=== PATIENT | female | born 1970 | race Caucasian/White ===

== ENCOUNTER → 2017-11-03 | Outpatient (CLI) | payer OTHER ==
--- NOTE | 2017-11-09 13:53 | MM ---
Reason for exam: screening (asymptomatic). Last mammogram was performed 2 years and 3 months ago. History: Patient is postmenopausal. Physical Findings: A clinical breast exam by your physician is recommended on an annual basis and results should be correlated with mammographic findings. MG Screening Mammo w CAD Bilateral CC and MLO view(s) were taken. Prior study comparison: August 14, 2015, bilateral MG 3d screening mammo w/cad. The breast tissue is extremely dense which could obscure a lesion on mammography. No significant changes when compared with prior studies. ASSESSMENT: Benign, BI-RAD 2 RECOMMENDATION: Routine screening mammogram of both breasts in 1 year.
== END | disposition home or self-care (01) ==
LOC: RADMAMWWP 15:15
PROVIDERS: ATTEND Obstetrics & Gynecology
DX: Z12.31 Encounter for screening mammogram for malignant neoplasm of breast (principal)
CPT/HCPCS: 77067

== ENCOUNTER 2018-08-22 14:46 | Emergency (ER) | payer OTHER ==
[2018-08-22 14:53] VITALS: BP 148/112; PULSE 89; RESP 16; TEMP 98.8
[2018-08-22] MEDS ORDERED: DIPH,PERTUS(ACELL)TETVAC-LF 0.5 ML VIAL IM ONE (15:13)
--- NOTE | 2018-08-22 15:37 | ED ---
General Adult HPI - General Chief complaint: Needlestick/Exposure Stated complaint: Needle stick-[facility] Time Seen by Provider: 08/22/18 14:55 Source: patient Mode of arrival: ambulatory Limitations: no limitations - History of Present Illness Initial comments: Patient is a 47-year-old female presents to the emergency Department with lancet postexposure. 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 Patient denies bleeding from the site of injury. Patient denies blood on the lancets prior to injury. Patient reports all of her vaccinations are up-to-date. Patient is unaware of the source the lancets were used. Patient denies fever, nausea, vomiting. Patient denies edema, erythema or any skin discoloration at the site of injury. Patient is concerned because her tetanus status is not up-to-date. Review of Systems ROS Statement: Those systems with pertinent positive or pertinent negative responses have been documented in the HPI. ROS Other: All systems not noted in ROS Statement are negative. Past Medical History Past Medical History: No Reported History Past Surgical History: No Surgical Hx Reported General Exam - General Exam Comments Initial Comments: General: Well-developed well-nourished distress HEENT: Normocephalic/atraumatic, PERLL, pharynx erythema, swallowing well, EAC no erythema, no exudates, TM clear, no cervical lymph nodes Neck: Supple, nontender, trachea midline Chest/Lungs: Normal respirations, no signs of respiratory distress clear to auscultation bilaterally no wheezes, rales, rhonchi Cardiac: Regular rate and rhythm, normal S1-S2, no murmurs rubs or gallops Abdomen/GI: Soft nontender, bowel sounds equal or quadrant x4, no guarding, no rebound no CVA tenderness Musculoskeletal: Nontender, full range of motion, no edema, strength equal bilaterally Skin: Warmth, no rashes or lesions, no cyanosis or diaphoresis, nonvisible puncture sites from a lancet on distal bilateral second digits. Neurologic: AAO x 3, CN 2-12 intact, Psychiatric: Mood and affect normal, judgment normal Limitations: no limitations Course Vital Signs 08/22/18 14:50 Temperature 98.8 F Pulse Rate 89 Respiratory 16 Rate Blood Pressure 148/112 O2 Sat by Pulse 99 Oximetry Medical Decision Making - Medical Decision Making Patient is a 47-year-old female presents emergency Department postexposure to her lancet. Patient was administered tetanus prophylaxis. There is a low probability for blood exposure using a non-hollow needle such as lancet. Patient advised to follow-up with primary care regarding concerns for further testing. Patient is unaware of the source thus making it difficult to track for possible exposure to any blood-borne pathogens. Strict return parameters were thoroughly discussed with patient who is understanding and agreeable. Case discussed with physician. Disposition Clinical Impression: Exposure to needle Disposition: HOME SELF-CARE Condition: Stable Additional Instructions: Please follow-up with primary care. Please return to emergency department if symptoms worsen. Is patient prescribed a controlled substance at d/c from ED?: No Referrals: Jacqueline Crooks III, MD [Primary Care Provider] - 1-2 days Time of Disposition: 15:37
== END 2018-08-22 15:43 | disposition home or self-care (01) ==
LOC: EC 14:46
DX: S69.91XA Unspecified injury of right wrist, hand and finger(s), initial encounter (principal); S69.92XA Unspecified injury of left wrist, hand and finger(s), initial encounter; W46.1XXA Contact with contaminated hypodermic needle, initial encounter; Z23 Encounter for immunization; Y92.69 Other specified industrial and construction area as the place of occurrence of the external cause; Y93.89 Activity, other specified; Y99.0 Civilian activity done for income or pay
CPT/HCPCS: 90471; 90715; 99282

== ENCOUNTER → 2019-12-31 | Outpatient (CLI) | payer OTHER | END | disposition home or self-care (01) | LOC: LABWHC1 09:59 | PROVIDERS: ATTEND Nurse Practitioner Family | DX: Z20.828 Contact with and (suspected) exposure to other viral communicable diseases (principal) | CPT/HCPCS: 87081; 87430; 87502; U0003; C9803 ==

== ENCOUNTER → 2020-06-17 | Outpatient (CLI) | payer OTHER ==
--- NOTE | 2020-06-18 13:08 | MM ---
Reason for exam: screening (asymptomatic). Last mammogram was performed 2 years and 7 months ago. History: Patient is postmenopausal. Physical Findings: A clinical breast exam by your physician is recommended on an annual basis and results should be correlated with mammographic findings. MG Screening Mammo w CAD Bilateral CC and MLO view(s) were taken. Prior study comparison: November 03, 2017, bilateral MG screening mammo w CAD. August 14, 2015, bilateral MG 3d screening mammo w/cad. The breast tissue is heterogeneously dense. This may lower the sensitivity of mammography. There is no discrete abnormality. ASSESSMENT: Negative, BI-RAD 1 RECOMMENDATION: Routine screening mammogram of both breasts in 1 year.
== END | disposition home or self-care (01) ==
LOC: RADMAMWWP 15:31
PROVIDERS: ATTEND Obstetrics & Gynecology
DX: Z12.31 Encounter for screening mammogram for malignant neoplasm of breast (principal); Z78.0 Asymptomatic menopausal state
CPT/HCPCS: 77067

== ENCOUNTER → 2022-01-14 | Outpatient (CLI) | payer OTHER | END | disposition home or self-care (01) | LOC: LABWHC1 13:42 | PROVIDERS: ATTEND Emergency Medicine | DX: Z53.9 Procedure and treatment not carried out, unspecified reason (principal) ==

== ENCOUNTER → 2022-02-22 | Outpatient (CLI) | payer OTHER ==
--- NOTE | 2022-02-22 15:18 | MR ---
EXAMINATION TYPE: MR lumbar spine wo con DATE OF EXAM: 02/22/2022 COMPARISON: NONE HISTORY: Lower back pain, radiates down left leg. TECHNIQUE: Multiplanar, multisequence imaging of the lumbar spine is performed without IV contrast. FINDINGS: Sagittal images of the lumbar spine show vertebral body heights to appear satisfactory. Sli ght grade 1 retrolisthesis L4 on L5. Multilevel disc desiccation is seen. Mild disc space narrowing L 4-L5 level. The conus medullaris is normal in position and signal ending inferior T12 level. 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 Heterogeneous Modic type II endplate changes anterior superior L3 and L4 vertebra with mild multilevel anterior spurring in the lumbar spine is noted. Axial images show some artifact degradation. Axial images both within normal limits T12-L1 through th e L3-L4 levels. Axial images at L4-L5 level show mild broad disc bulge with focal far left paracentral disc protrusio n component. Mild facet arthropathy bilaterally. There is effacement of the anterior thecal sac and l ateral recess. There is effacement of the central left L5 nerve sagittal image 7 and axial image 8. L eft-sided neural foramina is patent. Right-sided neural foramen is patent. Axial images at L5-S1 level show mild to moderate facet arthropathy. Spinal canal is preserved. Bilat eral neural foramina are patent. L5 vertebra is suspected sacralized bilaterally. IMPRESSION: Focal degenerative change at what I label L4-L5 level likely accounting for patient's lef t-sided radiculopathy type symptoms.
== END | disposition home or self-care (01) ==
LOC: RADMRIMAIN 12:28
PROVIDERS: ATTEND Nurse Practitioner Family
DX: M47.26 Other spondylosis with radiculopathy, lumbar region (principal)
CPT/HCPCS: 72148

== ENCOUNTER → 2022-03-09 | Outpatient (CLI) | payer OTHER | END | disposition home or self-care (01) | LOC: LABWHC1 08:42 | PROVIDERS: ATTEND Orthopaedic Surgery | DX: Z01.812 Encounter for preprocedural laboratory examination (principal); M51.26 Other intervertebral disc displacement, lumbar region; Z22.322 Carrier or suspected carrier of Methicillin resistant Staphylococcus aureus | CPT/HCPCS: 87070 ==

== ENCOUNTER → 2022-03-10 | Outpatient (CLI) | payer OTHER ==
[2022-03-10 19:23] LABS: Basophils # (A) 0.04 X 10*3/uL (0.00-0.10); Basophils % (A) 0.7 %; Eosinophils # (A) 0.26 X 10*3/uL (0.04-0.35); Eosinophils % (A) 4.5 %; HCT 42.5 % (37.2-46.3); HGB 13.6 g/dL (12.0-15.0); Immature Grans, Automated 0.2 %; Lymphocytes # (A) 1.29 X 10*3/uL (0.90-5.00); Lymphocytes % (A) 22.5 %; MCH 32.2 pg (27.0-32.0); MCV 100.5 fL (80.0-97.0); Mean Platelet Volume 11.7 fL (9.5-12.2); Monocytes # (A) 0.47 X 10*3/uL (0.20-1.00); Monocytes % (A) 8.2 %; NRBC Per 100 WBC 0 /100 WBCS (0.0-0.0); Neutrophils # (A) 3.66 X 10*3/uL (1.80-7.70); Neutrophils % (A) 63.9 %; Platelet Count 272 X 10*3/uL (140-440); RBC 4.23 X 10*6/uL (4.10-5.20); RDW 13.1 % (11.5-14.5); WBC 5.73 X 10*3/uL (4.50-10.00)
[2022-03-10 20:02] LABS: African American GFR (CKD) 107.4 (60.0-200.0); Anion Gap 15.2 mmol/L (10.00-18.00); BUN/Creat Ratio 28.67 Ratio (12.00-20.00); Blood Urea Nitrogen 21.3 mg/dL (9.0-27.0); Calcium 9.8 mg/dL (8.7-10.3); Carbon Dioxide 17.6 mmol/L (20.0-27.5); Non-African American GFR(CKD) 92.7 (60.0-200.0)
[2022-03-10 20:37] LABS: INR 0.88 (0.90-1.11)
== END | disposition home or self-care (01) ==
LOC: LABPAT 11:48
PROVIDERS: ATTEND Orthopaedic Surgery
DX: Z01.812 Encounter for preprocedural laboratory examination (principal); M51.26 Other intervertebral disc displacement, lumbar region
CPT/HCPCS: 80048; 85025; 85610

== ENCOUNTER 2022-03-15 05:53 | Day surgery (SDC) | payer OTHER ==
[2022-03-09 12:58] VITALS: BMI 30.7
[~2022-03-15 05:53] MED LIST: ACETAMINOPHEN TAB 500 MG TAB PO PRN; GABAPENTIN 300 MG CAP PO PRN; ONDANSETRON 4 MG/2 ML VIAL IVP PRN; TRANEXAMIC ACID IN NACL,ISO-OS 1,000 MG in SALINE 1 100ML.BAG IVPB PRN
[2022-03-15] MEDS ORDERED: ONDANSETRON 4 MG/2 ML VIAL IVP ONE (06:12)
[2022-03-15] MEDS ORDERED: DEXAMETHASONE SOD PHOSPHATE 4 MG/ML 1 ML VIAL IV ONE (06:12)
[2022-03-15] MEDS ORDERED: LIDOCAINE 1% (10MG/ML) FOR IV START INTRADERMA PRN (06:12)
--- NOTE | 2022-03-15 06:48 | P.HPOR ---
History of Present Illness H&P Date: 03/09/22 .D:Date: 03/09/22 : 10:33am .T:Title: [facility] Date of :[birth year] Age: 51 year Height: 5'5" Weight: 176 lbs BMI: 29.29 kg/m2 Occupation: Principal bakery assistant VAS: 6 CHIEF COMPLAINT: Low back pain DOI: 09/2021 DOS:n/a Duration of current treatment regiment: 3 months HISTORY: Xrays No new xrays taken in office Trauma or injury No Work-Related No Pain description aching, burning. Location posterior Patient notes that their pain radiates to left lower extremity Activity Modification No Hand Dominance right TREATMENTS COMPLETED: 6 weeks of PT completed? Month and Year of last PT date? Yes How many sessions? 12 Did it help? No Physician directed home exercise completed? yes Patient has trialed the physician directed home exercise program without relief of their symptoms. Medications yes List: Motrin, Toradol, flexeril, and steroids Alternative interventions Chiropractic: yes Massage therapy: yes R.I.C.E: yes Brace: No Injections No RFA: No SUBJECTIVE: Ms. Perrin returns too the office today for a recheck of her low back pain and MRI results. patient continues to report a dull ache burning lumbar pain that radiates into the left lower extremity, associated with numbness and tingling. Acupuncture 2 times a week and utilizing an inversion table, with mild relief. Patient states that sitting exacerbates her symptoms. Patient is currently standing throughout office visit and exam. She is very tearful and expressing that she has seen a progression in her symptoms since the onset. MRI results are reviewed and discussed. Patient and spouse verbalized understanding. Treatment options have been presented, which include surgical intervention. Ms. Perrin and her spouse have agreed to proceed forward with a Left L4-L5 Microdisce ctomy. Otherwise the patient denies any f/c/sob/cp, no bladder or bowel retention/incontinence, no perineal numbness/tingling, and ambulates independently. HPI: Ms. Perrin was last seen on 02/01/22 regarding an evaluation of their low back pain. Patient reports a dull ache burning lumbar pain ongoing since 09/2021 with no known injury or trauma to indicate an exact onset of their symptoms. In addition to their lumbar pain, they do report that it radiates into the left lower extremity, associated without numbness and tingling. Overall the patient has seen a progressive increase in symptoms since their onset. Ms. Perrin symptoms are exacerbated with sitting, standing, and ambulation, due to this they notes that it is increasingly difficult for Ms. Perrin to complete many of their daily tasks. Patient is having moderate sleep disturbances as well due to their ongoing pain and associated symptoms. Regarding treatments, the patient has previously trialed the above listed modalities, also to include yoga, acupuncture, and stretching. Patient denies trialing any other modalities at this time. For their symptoms, the patient has been taking Toradol and Flexeril with no relief. Patient did trial a Medrol Dosepak with relief. Patient did see her PCP for sciatica. Otherwise the patient denies any f/c/sob/cp, no bladder or bowel retention/incontinence, no perineal numbness/tingling, and ambulates independently. The patients' past social, medical, family, surgical history, as well as review of systems, have been reviewed. Please refer to the Neurosurgery History and Physical form that has been scanned in to our electronic medical record system. 14 points review of systems completed and as stated in HPI, all other systems reviewed are negative. Social History: Reviewed, see appropriate section of the chart for details. P3 Family History: Reviewed, see appropriate section of the chart for details. P2 Past Medical History: Reviewed, see appropriate section of the chart for details. [id number] Medications: Rx: Flexeril Ref: 0 Rx: gabapentin 300 mg capsule Ref: 0 Rx: hormone cream , Ref: 0 Rx: ibuprofen 800 mg tablet Ref: 0 PHYSICAL EXAMINATION: General: Awake, alert, appropriate for age, in no acute distress. HEENT: No unusual neck masses around region of lateral neck triangle, thyroid, supraclavicular groove Heart: Regular rate and rhythm, normal S1, S2 and no murmur/gallop. Lungs: Clear to auscultation bilaterally with no use of accessory muscles. Extremities: Skin warm and dry without acute lesions, coloration, temperature, skin intact, no tenderness or erythema Integument: Hairy patches: ABSENT Dorsal skin dimples: ABSENT Cafe au lait spots: ABSENT Surgical incisions: n/a Palpation: Please see Pain drawing on Intake sheet for further detail. Midline spinal tenderness: No E6 Cervical Tenderness: No E6 Paralumbar tenderness: No E6 Parathoracic tenderness: No E6 Buttocks tenderness: No E6 Sacroilliac Tenderness: yes Laterality: left POSTURAL and MUSCULO-SKELETAL EVALUATION: Coronal Balance: NEUTRAL Recumbent testing: Patient is notable to lay flat on back Sagittal Balance: NEUTRAL Shoulder Profile: LEVEL Pelvic Girdle: LEVEL Neck ROM: UNRESTRICTED Lumbar ROM: RESTRICTED Shoulder ROM: Symmetrical Hip ROM: Symmetrical Knee ROM: Symmetrical Hands: Normal appearance, symmetrical Feet: Normal appearance, Symmetrical VASCULAR STATUS : LEFT RIGHT Wrist Pulses INTACT INTACT Pedal Pulses (Dors. pedis & post.tibialis) INTACT INTACT Color NORMAL NORMAL Edema Absent Absent NEUROLOGIC EXAMINATION: Mental Status:Awake and alert, fully oriented, with normal attention, concentration and memory, and fluent, appropriate speech. Cranial Nerves: I: Olfactory not tested. II: Visual acuity normal, no visual field deficit noted with confrontation. III,IV: Normal pupillary reflexes & intact extraocular movements without nystagmus. V,: Intact symmetrical facial sensation. VII: Intact symmetrical facial motor movement VIII: Hearing intact. IX,X: Intact gag, swallow, & normal voice. XI: Sternocleidomastoid, trapezius function intact. XII: Tongue midline with normal movements. L'hermitte's Sign: Negative / absent Spurling'Sign: Absent bilaterally. Cubital percussion test: Absent bilaterally. Barahona-Tinel sign - Carpal region: Absent bilaterally. Straight Leg Raising: Absent right, positive left. Crossed straight leg raise: Absent O8 MOTOR EXAM (0-5/5, N/T Muscle appearance: Symmetrical, without signs of atrophy or dystrophy UPPER EXTREMITY RIGHT LEFT Shoulder Abduction 5/5 5/5 Biceps 5/5 5/5 Triceps 5/5 5/5 Wrist Extension 5/5 5/5 Hand Intrnsics 5/5 5/5 Flight Engineer Inspector 5/5 5/5 Hand and finger dexterity intact bilaterally? yes Disdiadochokinesis examination negative bilaterally? yes LOWER EXTREMITY RIGHT LEFT Hip Flexion 5/5 5/5 Knee Extension 5/5 5/5 Knee Flexion 5/5 5/5 Dorsiflexion 5/5 4+/5 Plantarflexion 5/5 4/5 EHL 5/5 4/5 FHL 5/5 5/5 Toe heel walk / heel-toe walk intact while maintaining satisfactory balance? yes Squatting/straightening w/o assistance to a min of 60 degree knee flexion? No Single leg stance: intact Trendelenburg sign negative bilaterally REFLEXES(0-4/2, NT)Upper ExtremityLower Extremity Right 2 2 Left 2 2 Pathological Reflexes RIGHT LEFT Barahona's Absent Absent Clonus Absent Absent Babinski Absent Absent Sensory system (0-4, N/T) Test type RU FREEMAN RL LL Joint-Position 2 2 2 2 Vibration 2 2 2 2 Pain & LT sense 2 2 2 2 Dermatomal Deficit: None None None L4-L5 Gait and Functional Evaluation: Ambulatory aids: Independent Romberg's test: Intact bilaterally Steady Gait RADIOGRAPHIC STUDIES: XRAY lumbar spine and pelvis [facility]: overall alignment is fairly well maintained. No acute fractures or dislocations noted. Mild spondylosis from L4 to S1 noted with facet arthrosis. End plate sclerosis noted. No lesions. AP pelvis demonstrates ground-level pelvis no fracture MRI [facility]completed at [facility] 02/22/22 of [facility] rSpine: images reviewed at L4-L5 there is a large left paracentral disc herniation causing displacement of the L5 nerve root as well as S1 nerve roots as it passes. This causes central and foraminal stenosis related central stenosis is moderate foraminal stenosis is severe. On the left-hand side. No other acute fractures or dislocations. There is disc degeneration at this level with disc collapse. Some facet arthrosis is noted. No acute fracture or dislocation noted IMPRESSION: It was my pleasure to have seen and examined Aliyah. I reviewed the patient's clinical syndrome, physical findings, and imaging studies during the appointment today. It is my impression that the patient has a diagnosis of. 1. L4-L5 left paracentral herniated disc with moderate to severe stenosis 2. L4 5 spondylosis 3. Left lower extremity radiculopathy 4. Left lower extremity weakness I outlined the natural course history without intervention and various interventional options. PLAN: -Based on my findings I suggest the following course of action: -Advised patient to continue with supplements, health maintenance, and home exercise programs. Patient expressed understanding and will continue with these modalities. - I discussed treatment options with the patient, including operative and non-operative options, and they have elected to proceed with the following surgical procedure: Left L4-L5 Microdiscectomy The indications, risks, benefits, and alternatives to surgery were discussed with the patient and family at length. Specifically (but not limited to) the risks of infection, stiffness, recurrence of symptoms, need for revision surgery, local numbness, neurovascular injury, and blood clots were discussed. The patient's questions were answered. The decision to proceed was made. Consent will be obtained for the procedure. -Ambulate daily -Take medications as directed -Ice and rest for pain and swelling control. - Prescription for [place] 5/325mg #18 sent to pharmacy Spine Surgery Risk Review Ms. Perrin is presenting for evaluation of low back pain. It was my pleasure to have seen and examined Ms. Perrin. In our visit today we have had a chance to go over subjective complaints, physical examination findings and treatments including the natural course history without intervention and various interventional options. The patients imaging demonstrates: XRAY lumbar spine and pelvis multiview, [facility]: overall alignment is fairly well maintained. No acute fractures or dislocations noted. Mild spondylosis from L4 to S1 noted with facet arthrosis. End plate sclerosis noted. No lesions. AP pelvis demonstrates ground-level pelvis no fracture MRI scancompleted at [facility] from 02/22/22 of LumbarSpine: images reviewed at L4-L5 there is a large left paracentral disc herniation causing displacement of the L5 nerve root as well as S1 nerve roots as it passes. This causes central and foraminal stenosis related central stenosis is moderate foraminal stenosis is severe. On the left-hand side. No other acute fractures or dislocations. There is disc degeneration at this level with disc collapse. Some facet arthrosis is noted. No acute fracture or dislocation noted On physical exam, Ms. Perrin demonstrates Left S1 joint tenderness, decreased lumbar range of motion due to pain with flexion, extension and twisting. Left lower extremity weakness and pain impacting functional testing and gait stability. Patient also has left L4-5 Dermatomal Deficits. Patient ambulates independently. I have explained to the patient that as their condition progresses it will cause further neurological deficits and eventual paralysis. Based on the patients imaging, physical exam, and the rapid progression and disabling nature of their symptoms, at this time I recommend surgery in the form or a: Left L4-L5 Microdiscectomy . I discussed the risk and benefits of this procedure at length with Ms. Aydin. The patient agreed to the considered pursuing the procedure abovementioned. Prior to surgery, she should follow up with her PCP (Cardio, ID, IM etc) for clearance. Questions were invited and answered, and the patient wishes to proceed as outlined below. Currently, I am recommendin.Left L4-L5 Microdiscectomy 2.Follow up with PCP for surgical clearance 3.Review of surgical risks and benefits as well as an educational packet on the proposed surgical procedure. Risks: All surgical procedures come with inherent risks, including those related to positioning, anesthesia, intraoperative findings, and postoperative complications. It is important to understand that surgery does not come with any guarantee of a successful outcome as complications and adverse events are always possible. The patient was given a handout in office today discussing the surgical procedure and risks associated with the intervention, both of which were discussed with the patient. These risks include but are not limited to the following: * Experiencing same, different or even worse symptoms in back, neck, arms, or legs compared to before surgery. Requiring further surgery or other forms of treatment presently or at some time in the future at same or other levels of the intended spine surgery. On an extreme but fortunately relatively rare basis severe complication such as blindness, stroke, heart attack, temporary and/or permanent nerve injury, paralysis, coma, or may occur, sometimes without known explanation. Surgical complications may include but are not limited to risk of infection, fluid accumulation in the surgical dissection site, including a seroma or hematoma, that requires additional surgery, wound drainage, bleeding, new numbness or weakness, vision changes/loss, spinal fluid leakage, non-healing and/or infected incision, headaches, difficulty or inability to swallow, hoarseness, hemopneumothorax, pneumothorax, impotence, retrograde ejaculation, vaginal dryness; injury to nerves, spinal cord, blood vessels, lymphatics or other vital organs (i.e., bowel injury, injury to the great vessels); heterotopic bone formation; complications related to the hardware such as screws, rods, cages including misplaced hardware, device failure, instrumentation at the wrong spine level, hardware fracture/breakage, or hardware loosening; vertebral failure of the spinal column above or below the newly placed hardware; retained surgical instrumentations or devices and the need for further surgery. * Medical risks of the planned spine surgery include but are not limited to generalized Infections to the whole body or local areas outside of the surgical site (sepsis), heart attack, bleeding, anaphylaxis, meningitis, seizure, epilepsy, hearing loss, burn durán, laceration of the head or other areas of the body, bruising, hypersensitivity of the skin, bladder over distension; allergic reaction; shoulder injury related to positioning; fat, blood and air clots to other areas of the body like heart, lungs, brain; fa ilure of internal organs such as lungs, kidneys, liver and excessive bleeding. If blood transfusions are necessary, note that transfusions may cause intolerance reactions such as anaphylaxis or other complex reactions. Despite best efforts, the results of spine surgery might not heal in terms of bone, soft tissues such as skin, fascia, ligaments, and joints. Additionally, in order to achieve best possible results, spine surgery may be carried out beyond the initially planned levels and involve decompression, fusion including insertion of hardware at levels other than the original intended area of surgical interest change some portions of the procedure in order to ensure the best possible outcomes. With spine surgery and spinal fusion, there are different off label uses of instrumentation (devices, implants and hardware) as well as biological substances (bone morphogenic proteins, demineralized bone matrix) as well as using extra bone from allograft sources (i.e. cadaver bone) or autograft (iliac crest bone, ribs, or the spine itself). The patient has been given information about these practices and their inherent risks and benefits. [facility] is an educational center that serves as a training facility for neurosurgical and orthopedic PASSENGER SERVICE AGENT and Nursing students. Physician assistants are medically trained surgical providers who function in the outpatient, inpatient, and operating room setting under the direct supervision of the attending surgeon. [facility] has multiple operating rooms with single and overlapping rooms running daily. They currently function under the required guidelines as produced by the [facility] Finance Committee with regards to the overlapping rooms and will continue to comply with changes to this policy as they occur. The requ irements include and are complied with as follows: (1) the critical portions of the overlapping rooms will not occur at the same time, (2) the attending physician will be physically present during the critical portions of the procedure and immediately available during the entire case, and (3) a back-up attending is designated should the primary attending not be immediately available. The patient has had a chance to review all the listed information, has been given print outs detailing this information, and has had all his/her questions answered to their satisfaction. It was my pleasure to have seen and examined Ms. Perrin. In our visit today we have had a chance to go over my understanding of our patient's current condition, the natural course history without intervention and various inte rventional options. Questions were invited and answered, and the patient wishes to proceed as outlined above. I have seen and examined the patient for 25 minutes and we have spent more than 50% of the time in repeat and detailed counseling about the patient's condition, its natural course history with out and as much as can be predicted with surgery and re-review of various surgical treatment options. In conclusion, Ms. Perrin requested we proceed with the above suggested surgery and are willing to accept risks and limitations of the suggested surgery as nature of the disease process and our best attempts at treatment for the condition. Thank you again for allowing us to be part of your patient's care. Please don't hesitate to contact me if you have any further questions. Signed and authenticated by: [employer] P:\\\\ppart\\\\[id number]\\\\[id number] \\d Follow- up: Post procedure Patient Education: (Informational booklet, instructions, etc) given at today's appointment: Yes .ED:Patient Education: Y Medications Reviewed: YES In our visit today Ms. Perrin and I have had a chance to go over my understanding of the patient's current condition, the natural course history without intervention and various interventional options. Questions were invited and answered, and the patient wishes to proceed as outlined above. I will be sure to keep you updated afterMs. Perrin returns here for further follow-up. Thank you again for your referral. Please do not hesitate to contact me if you have any further questions. Signed and authenticated by: [facility] Complex and Minimally Invasive Spine Surgery [address] [place] [address] This message is confidential, intended only for the named recipient(s) and may contain information that is privileged or exempt from disclosure under applicable law. If you are not the intended recipient(s), you are notified that the dissemination, distribution or copying of this information is strictly prohibited. If you received this message in error, please notify the sender then delete this message. Patient verbalizes understanding of the information discussed. The above note was initiated by Renate Daniels, physician recording bakery assistant for Dr. Mason Myers. This note has been reviewed by Dr. Myers, who has made his personal changes and impressions for this document. Rx: HYDROcodone 5 mg-acetaminophen 325 mg tablet, 18, Ref: 0, take 1 tablet by oral route every 6 hours as needed for pain # SIGNED BY Mason Myers (GOO)03/09/2022 04:21PM Past Medical History Past Medical History: No Reported History Additional Past Medical History / Comment(s): 2 herniated discs. Varicose veins. History of Any Multi-Drug Resistant Organisms: None Reported Past Surgical History: No Surgical Hx Reported Additional Past Surgical History / Comment(s): Right knee arthroscopy. Past Anesthesia/Blood Transfusion Reactions: Postoperative Nausea & Vomiting (PONV) Past Psychological History: No Psychological Hx Reported Smoking Status: Never smoker Past Alcohol Use History: Rare Past Drug Use History: None Reported - Past Family History Sister(s) Family Medical History: Cancer Additional Family Medical History / Comment(s): Uterine cancer. Medications and Allergies Home Medications Medication Instructions Recorded Confirmed Type Ascorbic Acid [Vitamin C] 1,000 mg PO DAILY 03/09/22 03/09/22 History Cyclobenzaprine [Flexeril] 10 mg PO TID PRN 03/09/22 03/09/22 History Gabapentin 300 mg PO BID 03/09/22 03/09/22 History Gabapentin 600 mg PO HS 03/09/22 03/09/22 History Hormone Cream 1 dose VAGINAL MOTUWETHFRSA 03/09/22 03/09/22 History [place] (Unknown Dose) 1 tab PO HS 03/09/22 03/09/22 History Allergies Allergy/AdvReac Type Severity Reaction Status Date / Time Sulfa (Sulfonamide AdvReac Rash/Hives Verified 03/15/22 06:32 Antibiotics) Physical Examination Osteopathic Statement: *. No significant issues noted on an osteopathic structural exam other than those noted in the History and Physical/Consult.
[2022-03-15] MEDS: LACTATED RINGERS 1,000 ML IV SCH ×2 (07:02→07:15)
[2022-03-15] MEDS ORDERED: SCOPOLAMINE 1 MG/72 HR PATCH TRANSDERM ONE (07:10)
[2022-03-15] MEDS ORDERED: NEOSTIGMINE 1 MG/ML 10 ML VIAL ONE (07:25)
[2022-03-15] MEDS ORDERED: fentaNYL (PF) 50 MCG/ML 2 ML AMP ONE (07:25)
[2022-03-15] MEDS ORDERED: MIDAZOLAM 2 MG/2 ML VIAL ONE (07:25)
[2022-03-15] MEDS ORDERED: ROCURONIUM 10 MG/ML (5 ML VIAL) IV ONE (07:25)
[2022-03-15] MEDS ORDERED: GLYCOPYRROLATE 0.2 MG/ML 2 ML VIAL ONE (07:25)
[2022-03-15] MEDS ORDERED: TRANEXAMIC ACID IN NACL,ISO-OS 1,000 MG/100 ML BAG ONE (07:25)
[2022-03-15] MEDS ORDERED: SUCCINYLCHOLINE CHLORIDE 200 MG/10 ML VIAL IV ONE (07:25)
[2022-03-15] MEDS ORDERED: PROPOFOL 10 MG/ML 20 ML VIAL IV ONE (07:25)
[2022-03-15] MEDS ORDERED: DEXAMETHASONE SOD PHOS (MDV) 100 MG/10 ML VIAL ONE (07:25)
[2022-03-15] MEDS ORDERED: LIDOCAINE 2% INJ 20 MG/ML (2 ML VIAL) ONE (07:25)
[2022-03-15] MEDS ORDERED: PHENYLEPHRINE-0.9% NACL SYG 1,000 MCG/10 ML SYRINGE ONE (07:25)
[2022-03-15] MEDS ORDERED: HYDROmorphone (PF) 1 MG/ML ONE (07:25)
[2022-03-15] MEDS ORDERED: THROMBIN (BOVINE) 5,000 UNIT VIAL TOPICAL ONE (07:29)
[2022-03-15] MEDS ORDERED: GELATIN SPONGE,ABSORB (LARGE) 1 EACH SPONGE TOPICAL ONE (07:29)
[2022-03-15] MEDS ORDERED: methylPREDNISolone ACETATE 40 MG/ML 1 ML VIAL MISCELLANE ONE (08:35)
[2022-03-15] MEDS ORDERED: HYDROcodone/APAP 10-325MG 1 EACH TAB PO PRN (08:59)
[2022-03-15] MEDS ORDERED: SENNOSIDES-DOCUSATE SODIUM 1 EACH TAB PO PRN (08:59)
[2022-03-15] MEDS ORDERED: HYDROmorphone 1 MG/ML 1 ML SYRINGE IVP PRN (08:59)
[2022-03-15] MEDS ORDERED: CYCLOBENZAPRINE 5 MG TAB PO PRN (08:59)
[2022-03-15] MEDS ORDERED: HYDROmorphone 0.5 MG/0.5 ML SYRINGE IVP PRN (08:59)
[2022-03-15] MEDS ORDERED: HYDROcodone/APAP 5-325MG 1 EACH TAB PO PRN (08:59)
--- NOTE | 2022-03-15 09:09 | XR ---
Intraoperative/procedural fluoroscopic services were provided for lumbar discectomy. Total fluoroscop y time is 5 seconds with a total of 7 submitted images to PACS. Please see the operative note for fur ther details.
[2022-03-15 09:19] VITALS: TEMP 97.3
[2022-03-15] MEDS: HYDROmorphone 0.5 MG/0.5 ML SYRINGE IVP PRN ×3 (09:21→10:06)
--- NOTE | 2022-03-15 09:26 | P.OP ---
Date of Procedure: 03/15/22 Preoperative Diagnosis: 1. 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 LE radiculopathy Postoperative Diagnosis: 1. 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 LE radiculopathy Procedure(s) Performed: 1. L4-5 Left microdiscecomty (48077) Anesthesia: PRISCILLAA Surgeon: Mason Myers Plater Barrel #1: Payam Brandon (Was present and assisted with all aspects of the case from positioning to dressing placement) Estimated Blood Loss (ml): 25 IV fluids (ml): 700 Urine output (ml): 0 Pathology: none sent Condition: stable Disposition: PACU Indications for Procedure: Ms. Perrin is presenting for evaluation of low back pain. It was my pleasure to have seen and examined Ms. Perrin. In our visit today we have had a chance to go over subjective complaints, physical examination findings and treatments including the natural course history without intervention and various interventional options. The patients imaging demonstrates: XRAY lumbar spine and pelvis multiview, 02/01/22 at [facility]: overall alignment is fairly well maintained. No acute fractures or dislocations noted. Mild spondylosis from L4 to S1 noted with facet arthrosis. End plate sclerosis noted. No lesions. AP pelvis demonstrates ground-level pelvis no fracture MRI [facility] at [facility] from 02/22/22 of [facility]: images reviewed at L4-L5 there is a large left paracentral disc herniation causing displacement of the L5 nerve root as well as S1 nerve roots as it passes. This causes central and foraminal stenosis related central stenosis is moderate foraminal stenosis is severe. On the left-hand side. No other acute fractures or dislocations. There is disc degeneration at this level with disc collapse. Some facet arthrosis is noted. No acute fracture or dislocation noted On physical exam, Ms. Perrin demonstrates Left S1 joint tenderness, decreased lumbar range of motion due to pain with flexion, extension and twisting. Left lower extremity weakness and pain impacting functional testing and gait stability. Patient also has left L4-5 Dermatomal Deficits. Patient ambulates independently. I have explained to the patient that as their condition progresses it will cause further neurological deficits and eventual paralysis. Based on the patients imaging, physical exam, and the rapid progression and disabling nature of their symptoms, at this time I recommend surgery in the form or a: Left L4-L5 Microdiscectomy . I discussed the risk and benefits of this procedure at length with Ms. Perrin. The patient agreed to the considered pursuing the procedure abovementioned. Prior to surgery, she should follow up with her PCP (Cardio, ID, IM etc) for clearance. Questions were invited and answered, and the patient wishes to proceed as outlined below. Currently, I am recommendin.Left L4-L5 Microdiscectomy Description of Procedure: L4-5 Microdisc The patient was seen and examined in the preoperative area. All preoperative protocols were followed. Informed consent was obtained, risks and benefits of the procedure were discussed at length. Risks including bleeding infection damage to the surrounding tissue and risk of re-operation were discussed with the patient. Risk of anesthesia up to and including was discussed with the patient. These are outlined in the risk review. They were willing to accept these risks and all the risks of surgery. The patient was given a weight-based dose of antibiotics in the form of 2 g Ancef. The patient was seen and evaluated by the anesthesia team who deemed them fit for surgery. The site was marked, the patient was willing to proceed with the procedure. The patient was transferred to the operative suite by the Department of anesthesia. They were then drifted off to sleep by the department anesthesia and GETA was performed. The patient tolerated this well. Once confirmation of lines and ventilation the patient was transferred to a prone Haseeb table very carefully. All bony prominences including wrists, elbows, axilla, chest, hips, and thighs, and feet were padded very well. Special attention was paid to the genitalia, and these were padded accordingly. SCDs were placed on bilateral lower extremities and were connected. Arms were well padded and placed on arm boards up and out in the 90/90 position. Once in position, again we confirmed good ventilation capabilities and that lines were running appropriately. The patients Lumbar spine was then exposed. 1010s were placed outlining the incision site. Standard alcohol was used to clean the incision site and allowed to dry. C-arm was used to needle localize the pedicles at L4-5 and bio-gómez the patient and confirm level for incision which was marked with a skin marker. Operative briefing was performed with all teams and everyone in agreement to proceed. The patient was then prepped and draped in a normal sterile fashion. Timeout was then performed, and all parties agreed with the procedure to be performed. Skin incision was made over the previously marked area and dissection taken down to the deep facia which was split just off midline for a midline sparing approach. Subperiosteal dissection was then taken down the lamina over the facet joints and identifying the pars at L4. [place] 4 was placed at the level of the pars of L4 and a lateral image taken to confirm operative level. Retractors were then placed. Microscope was then brought in for visualization. Luis-laminotomy, partial medial facetectomy and foraminotomy were performed at L4-5 using high speed johana and Kerrison rongure. The ligamentum flavum was removed with Kerrison and curette. Dura and roots protected. The disc space was identified along with the herniation. 11 blade was used to make small annulotomy and micro-pituitary used to remove loose disc fragments. Once fragments were removed, down biting curette was used to push any medial fragments down and towards the annulotomy and decompress centrally. The disc space was irrigated, and any loose fragments removed again. Bipolar was used for hemostasis and scarring of the annulotomy. The area was irrigated, and meticulous hemostasis performed. The bed was inspected, and all roots have ample room and are decompressed along with the dura. There were no injuries. Retractors were then removed. The wound was copiously irrigated with NSS. The deep fascia was closed with 0 PDS. Deep sub-q with 0 Vicryl and superficial with 2-0 Vicryl. Subcuticular was closed with 3-0 stratafix. The wound edges approximated well. The wound was then cleaned, and glue tape placed on the skin and allowed to dry. It was then Covered with an Opifoam dressing. The patient was then transferred off the table back to their hospital bed a- traumatically. They were extubated by the department of anesthesia. They were then transferred to PACU in stable condition having tolerated the procedure with no complications.
[2022-03-15] MEDS ORDERED: HYDROcodone/APAP 10-325MG 1 EACH TAB PO ONE (11:27)
[2022-03-15] MEDS ORDERED: ACETAMINOPHEN TAB 325 MG TAB PO SCH (12:00)
[2022-03-15 12:33] VITALS: BP 125/88; PULSE 98; RESP 15
== END 2022-03-15 12:55 | disposition home or self-care (01) ==
LOC: OR 05:53
PROVIDERS: ATTEND Orthopaedic Surgery
DX: M51.16 Intervertebral disc disorders with radiculopathy, lumbar region (principal); Z98.890 Other specified postprocedural states; Z86.59 Personal history of other mental and behavioral disorders; Z80.49 Family history of malignant neoplasm of other genital organs; Z79.899 Other long term (current) drug therapy; Z88.2 Allergy status to sulfonamides
CPT/HCPCS: 86900; 86901; 86850; 72100; 36415; 63030; C1762; J2250; J0330; J1030; J1100 ×2; J2710; J0690; J2405; J3010; J1170 ×2; J2370; J2704; J2001

== ENCOUNTER 2022-04-04 14:02 | Observation (INO) | payer OTHER ==
--- NOTE | 2022-04-04 14:05 | ED ---
General Adult HPI - General Source: patient, RN notes reviewed Mode of arrival: ambulatory Limitations: no limitations <Jevon Torres - Last Filed: 04/04/22 14:04> <Robson Kyle - Last Filed: 04/04/22 16:24> - General Stated complaint: back pain Time Seen by Provider: 04/04/22 14:04 - History of Present Illness Initial comments: This a 51-year-old female presents emergency Department chief complaint of back issues. Patient had initial surgery by Dr. Myers a few weeks ago. Patient was remedicated because she has secondary infection. Patient states that she just left his office noting that there was some drainage of CSF. patient states that she has nausea control with her scopolamine patch pain is mild at this time. Patient denies any bowel bladder incontinence or retention. (Jevon Torres) Dictation was produced using [employer] dictation software. please excuse any grammatical, word or spelling errors. Chief Complaint: 51-year-old female sent to our emergency department from spine surgeon for admission for drainage from surgical site History of Present Illness: Patient's 51-year-old female she had back surgery done by Dr. Myers on March 15. Since the surgery she had fluid collection to the surgical site. Cold days ago patient had a mesh that was placed to try to manage drainage. She is admitted from 5 days ago for 3 days. She had a follow-up appointment in the clinic today for continued drainage. She was sent to the ER to be admitted with plans for revision operation tomorrow. Patient is told that there is concern of CSF leakage. Denies any fevers. She has been having some mild headaches recently but denies any headache today. The ROS documented in this emergency department record has been reviewed and confirmed by me. Those systems with pertinent positive or negative responses have been documented in the HPI. All other systems are other negative and/or noncontributory. PHYSICAL EXAM: General Impression: Alert and oriented x3, not in acute distress HEENT: Normocephalic atraumatic, extra-ocular movements intact, pupils equal and reactive to light bilaterally, mucous membranes moist. Cardiovascular: Heart regular rate and rhythm Chest: Able to complete full sentences, no retractions, no tachypnea Abdomen: abdomen soft, non-tender, non-distended, no organomegaly Musculoskeletal: Pulses present and equal in all extremities, no peripheral edema Motor: no focal deficits noted Neurological: CN II-XII grossly intact, no focal motor or sensory deficits noted Skin: Surgical site covered with bandage. Dressing is not saturated Psych: Normal affect and mood ED course: Is 51-year-old female sent in by surgeon for drainage of fluid from surgical site. She is told that there was perhaps CSF leakage. Vital signs upon arrival are within acceptable limits. More history was obtained from [facility] under Dr. Taylor. States that patient recently procedure seen in the office today and will be admitted for surgical intervention to leakage. Nursing notes and chart review was performed Patient admitted. (Robson Kyle) - Related Data Home Medications Medication Instructions Recorded Confirmed Acetaminophen/Diphenhydramine 1 tab PO HS PRN 03/30/22 03/30/22 [Tylenol PM 500-25mg] Previous Rx's Medication Instructions Recorded Ondansetron [Zofran] 4 mg PO Q8HR PRN #10 tab 03/15/22 Cyclobenzaprine [Flexeril] 10 mg PO TID #90 tab 04/02/22 Gabapentin 600 mg PO TID #90 tab 04/02/22 HYDROcodone/APAP 7.5-325MG [[place] 1 each PO Q4-6H PRN #56 tab 04/02/22 7.5] Ibuprofen [Motrin] 800 mg PO Q8H #60 tab 04/02/22 Sennosides/Docusate Sodium [Senna 1 each PO DAILY PRN #20 tablet 04/02/22 Plus 8.6-50 mg Tablet] cefaDROXiL [Duricef] 500 mg PO Q12HR 10 Days #20 cap 04/02/22 Allergies Allergy/AdvReac Type Severity Reaction Status Date / Time Sulfa (Sulfonamide AdvReac Rash/Hives Verified 03/31/22 15:33 Antibiotics) Review of Systems ROS Other: All systems not noted in ROS Statement are negative. <Jevon Torres - Last Filed: 04/04/22 14:04> ROS Other: All systems not noted in ROS Statement are negative. <Robson Kyle - Last Filed: 04/04/22 16:24> ROS Statement: Those systems with pertinent positive or pertinent negative responses have been documented in the HPI. Past Medical History Past Medical History: No Reported History Additional Past Medical History / Comment(s): 2 herniated discs. Varicose veins. History of Any Multi-Drug Resistant Organisms: None Reported Past Surgical History: No Surgical Hx Reported, Back Surgery Additional Past Surgical History / Comment(s): Right knee arthroscopy. Past Anesthesia/Blood Transfusion Reactions: No Reported Reaction, Postoperative Nausea & Vomiting (PONV) Past Psychological History: No Psychological Hx Reported Smoking Status: Never smoker Past Alcohol Use History: Rare Past Drug Use History: None Reported - Past Family History Sister(s) Family Medical History: Cancer Additional Family Medical History / Comment(s): Uterine cancer. <Jevon Torres M - Last Filed: 04/04/22 14:04> Course Vital Signs 04/04/22 14:55 Temperature 99.3 F Pulse Rate 109 H Respiratory 20 Rate Blood Pressure 149/91 O2 Sat by Pulse 98 Oximetry Medical Decision Making - Lab Data Result diagrams: 04/04/22 15:19 04/04/22 15:19 <Robson Kyle - Last Filed: 04/04/22 16:24> - Lab Data Lab Results 04/04/22 04/04/22 04/04/22 Range/Units 15:19 15:19 15:19 WBC 7.7 (3.8-10.6) k/uL RBC 3.46 L (3.80-5.40) m/uL Hgb 11.2 L (11.4-16.0) gm/dL Hct 33.5 L (34.0-46.0) % MCV 96.7 (80.0-100.0) fL MCH 32.3 (25.0-35.0) pg MCHC 33.4 (31.0-37.0) g/dL RDW 12.5 (11.5-15.5) % Plt Count 267 (150-450) k/uL MPV 8.4 Neutrophils % 81 % Lymphocytes % 10 % Monocytes % 4 % Eosinophils % 4 % Basophils % 0 % Neutrophils # 6.2 (1.3-7.7) k/uL Lymphocytes # 0.8 L (1.0-4.8) k/uL Monocytes # 0.3 (0-1.0) k/uL Eosinophils # 0.3 (0-0.7) k/uL Basophils # 0.0 (0-0.2) k/uL PT 9.4 (9.0-12.0) sec INR 0.9 (<1.2) APTT 22.3 (22.0-30.0) sec Sodium 137 (137-145) mmol/L Potassium 4.3 (3.5-5.1) mmol/L Chloride 105 (98-107) mmol/L Carbon Dioxide 27 (22-30) mmol/L Anion Gap 5 mmol/L BUN 13 (7-17) mg/dL Creatinine 0.54 (0.52-1.04) mg/dL Est GFR (CKD-EPI)AfAm >90 (>60 ml/min/1.73 sqM) Est GFR (CKD-EPI)NonAf >90 (>60 ml/min/1.73 sqM) Glucose 135 H (74-99) mg/dL Calcium 9.0 (8.4-10.2) mg/dL Total Bilirubin 0.3 (0.2-1.3) mg/dL AST 25 (14-36) U/L ALT 19 (4-34) U/L Alkaline Phosphatase 54 (38-126) U/L Total Protein 6.4 (6.3-8.2) g/dL Albumin 3.6 (3.5-5.0) g/dL Disposition <Jevon Torres - Last Filed: 04/04/22 14:04> Decision Time: 16:24 <Robson Kyle - Last Filed: 04/04/22 16:24> Clinical Impression: Drainage from surgical wound Disposition: ADMITTED IP TO THIS HOSP Condition: Fair Referrals: Karly Garcia MD [Primary Care Provider] - 1-2 days
[2022-04-04 15:39] LABS: Basophils % (A) 0 %; Eosinophils # (A) 0.3 k/uL (0-0.7); Eosinophils % (A) 4 %; HCT 33.5 % (34.0-46.0); HGB 11.2 gm/dL (11.4-16.0); Lymphocytes # (A) 0.8 k/uL (1.0-4.8); Lymphocytes % (A) 10 %; MCH 32.3 pg (25.0-35.0); MCHC 33.4 g/dL (31.0-37.0); MCV 96.7 fL (80.0-100.0); Mean Platelet Volume 8.4; Monocytes # (A) 0.3 k/uL (0-1.0); Monocytes % (A) 4 %; Neutrophils # (A) 6.2 k/uL (1.3-7.7); Neutrophils % (A) 81 %; Platelet Count 267 k/uL (150-450); RBC 3.46 m/uL (3.80-5.40); RDW 12.5 % (11.5-15.5); WBC 7.7 k/uL (3.8-10.6)
[2022-04-04 15:53] LABS: INR 0.9 (<1.2); Partial Thromboplastin Time 22.3 sec (22.0-30.0); Prothrombin Time 9.4 sec (9.0-12.0)
[2022-04-04 15:54] LABS: ALT 19 U/L (4-34); AST 25 U/L (14-36); African American GFR (CKD) >90 (>60 ml/min/1.73 sqM); Albumin 3.6 g/dL (3.5-5.0); Alkaline Phosphatase 54 U/L (38-126); Anion Gap 5 mmol/L; Blood Urea Nitrogen 13 mg/dL (7-17); Carbon Dioxide 27 mmol/L (22-30); Chloride 105 mmol/L (98-107); Glucose 135 mg/dL (74-99); Non-African American GFR(CKD) >90 (>60 ml/min/1.73 sqM); Potassium 4.3 mmol/L (3.5-5.1); Sodium 137 mmol/L (137-145); Total Bilirubin 0.3 mg/dL (0.2-1.3); Total Protein 6.4 g/dL (6.3-8.2)
[2022-04-04] MEDS ORDERED: NALOXONE 0.4 MG/ML 1 ML VIAL IV PRN (16:15)
[2022-04-04] MEDS: SODIUM CHLORIDE 0.9% 1,000 ML IV SCH (16:37)
[2022-04-04] MEDS ORDERED: HYDROcodone/APAP 7.5-325MG 1 EACH TAB PO PRN (17:16)
--- NOTE | 2022-04-04 17:19 | P.HPOR ---
History of Present Illness H&P Date: 04/04/22 Chief Complaint: incisional drainage; headaches Patient is a 51-year-old female who presented the emergency department at [facility] this afternoon with nonhealing wound present with clear drainage and headaches. Patient did have revision of L4-L5 microdiscectomy on 03/31/[address] Goodman esposito. Patient is seen at bedside in the emergency department this afternoon lying supine with a dressing over lumbar spine incision. Patient says over the past several days once she was discharged home her had noticed a clear drainage on the back of her dressing. Patient states she has had some headaches and patient does say these are minor in nature since the surgery. Patient did see orthopedic nurse in office earlier this morning who contacted Dr. Myers and he recommended patient come to the hospital. Patient states she does have some low back pain at this time mostly related to the surgery/incision site. Patient denies any other complaints at t his time. Patient denies chest pain, fever, shortness of breath, nausea, vomiting, change in vision, loss of bowel/bladder control. Past Medical History Past Medical History: No Reported History Additional Past Medical History / Comment(s): 2 herniated discs. Varicose veins. History of Any Multi-Drug Resistant Organisms: None Reported Past Surgical History: No Surgical Hx Reported, Back Surgery Additional Past Surgical History / Comment(s): Right knee arthroscopy. lumbar l4-5 lumbar disc Past Anesthesia/Blood Transfusion Reactions: No Reported Reaction, Postoperative Nausea & Vomiting (PONV) Past Psychological History: No Psychological Hx Reported Smoking Status: Never smoker Past Alcohol Use History: Rare Past Drug Use History: None Reported - Past Family History Sister(s) Family Medical History: Cancer Additional Family Medical History / Comment(s): Uterine cancer. Medications and Allergies Home Medications Medication Instructions Recorded Confirmed Type Acetaminophen/Diphenhydramine 1 tab PO HS PRN 03/30/22 04/04/22 History [Tylenol PM 500-25mg] Cyclobenzaprine [Flexeril] 10 mg PO TID #90 tab 04/02/22 04/04/22 Rx Gabapentin 600 mg PO TID #90 tab 04/02/22 04/04/22 Rx Ibuprofen [Motrin] 800 mg PO Q8H #60 tab 04/02/22 04/04/22 Rx cefaDROXiL [Duricef] 500 mg PO Q12HR 10 Days #20 cap 04/02/22 04/04/22 Rx HYDROcodone/APAP 7.5-325MG [[place] 1 tab PO Q4-6H PRN 04/04/22 04/04/22 History 7.5] Sennosides/Docusate Sodium [Senna 1 tab PO DAILY PRN 04/04/22 04/04/22 History Plus 8.6-50 mg Tablet] Allergies Allergy/AdvReac Type Severity Reaction Status Date / Time Sulfa (Sulfonamide AdvReac Rash/Hives Verified 04/04/22 16:44 Antibiotics) Physical Examination Inspection: Dressing present midline lower lumbar spine. Dressing is dry at this time. The for any active drainage. There is some erythema surrounding the incision at the proximal and distal aspects. Nylon sutures appear to be well aligned and intact at this time. Negative for any fluctuance/purulence. Sensation: Sensation is equal, symmetric, and intact throughout the upper and lower extremities. Palpation: There is a fair amount of tenderness to palpation around incision at the lumbar spine. Nontender to palpation throughout exam. Range of motion: Patient does have full range motion of bilateral upper and lower extremities on exam Motor exam: 4+/5 in all major motor groups Neurovascular status: Radial pulses intact bilaterally, 2+. Cap refill is under 3 seconds in digits upper extremities Special tests: Negative clonus bilaterally. Negative Kelley bilaterally. Negative Homans bilaterally. Results - Labs Labs: Abnormal Lab Results - Last 24 Hours (Table) 04/04/22 04/04/22 Range/Units 15:19 15:19 RBC 3.46 L (3.80-5.40) m/uL Hgb 11.2 L (11.4-16.0) gm/dL Hct 33.5 L (34.0-46.0) % Lymphocytes # 0.8 L (1.0-4.8) k/uL Glucose 135 H (74-99) mg/dL H & H 04/04/22 Range/Units 15:19 Hgb 11.2 L (11.4-16.0) gm/dL Hct 33.5 L (34.0-46.0) % Coagulation 04/04/22 Range/Units 15:19 INR 0.9 (<1.2) Result Diagrams: 04/04/22 15:19 04/04/22 15:19 Assessment and Plan Assessment: 1. Low back pain; headaches; incisional drainage 2. History of L4-L5 microdiscectomy Plan: 1. Low back pain; headaches; incisional drainage - patient did have revision L4 to L5 microdiscectomy performed on 03/31/2022. Patient does present with continued drainage from incision that has become clear in color. Patient does also present with some headache. At this time we are recommending surgical intervention in the form of revision incision and drainage of wound on lumbar spine and dural repair. Patient is to be nothing by mouth at midnight. Bed is to remain in supine position at all times. We'll continue to follow patient during her stay in hospital. 2. Appreciate medical management 3. Pain management 4. GI prophylaxis - senna 5. PT/OT - weightbearing as tolerated with walker as needed 6. Encourage incentive spirometer use Time with Patient: Less than 30
[2022-04-04 17:29] LABS: African American GFR (CKD) >90 (>60 ml/min/1.73 sqM); Anion Gap 5 mmol/L; Blood Urea Nitrogen 14 mg/dL (7-17); Carbon Dioxide 26 mmol/L (22-30); Chloride 106 mmol/L (98-107); Glucose 136 mg/dL (74-99); Non-African American GFR(CKD) >90 (>60 ml/min/1.73 sqM); Potassium 4.3 mmol/L (3.5-5.1); Sodium 137 mmol/L (137-145)
[2022-04-04] MEDS ORDERED: GABAPENTIN 300 MG CAP PO SCH (21:00)
[2022-04-04] MEDS: GABAPENTIN 300 MG CAP PO SCH (21:16)
[2022-04-04] MEDS: CYCLOBENZAPRINE 10 MG TAB PO SCH (21:16)
[2022-04-05] MEDS: HYDROcodone/APAP 7.5-325MG 1 EACH TAB PO PRN ×6 (00:16→22:34)
[2022-04-05] MEDS: GABAPENTIN 300 MG CAP PO SCH ×3 (06:59→20:23)
[2022-04-05] MEDS: CYCLOBENZAPRINE 10 MG TAB PO SCH ×3 (06:59→20:22)
--- NOTE | 2022-04-05 07:20 | P.PN ---
Subjective Progress Note Date: 04/05/22 Pt s/e. She is doing OK. She states yesterday there was a lot of yellow drainage from her wound. She states the day before that there was a lot of blood. Today she is doing OK. She deneis any SCHWAB, N, V, Blurred or double vision. She has no positional SCHWAB or changes. She states continued drainage from the wound. Dressing is spotted with yellowish fluid. No evidence of infection at this time. She denies any perineal sx. No numbness/tingling. NO weakness. Objective - Vital Signs Vital signs: Vital Signs Temp 98.3 F 04/05/22 01:32 Pulse 106 H 04/05/22 01:32 Resp 16 04/05/22 01:32 BP 113/78 04/05/22 01:32 Pulse Ox 93 L 04/05/22 01:32 FiO2 Intake & Output 04/04/22 04/05/22 04/05/22 18:59 06:59 18:59 Intake Total 240 960 Balance 240 960 Weight 83.915 kg Intake: Oral 240 960 Other: # Voids 1 1 - Exam PHYSICAL EXAMINATION: Vitals: stable General: Awake, alert, appropriate for age, in no acute distress. HEENT: No unusual neck masses around region of lateral neck triangle, thyroid, supraclavicular groove. Extremities: Skin warm and dry without no acute lesions, coloration, temperature, skin intact, no tenderness or erythema. Integument: Hairy patches: Absent Dorsal skin dimples: Absent Cafe au lait spots: Absent Surgical incisions: incision is healing well sutures are in place. There is a pinhole area at the bottom of the wound is draining a serous-like fluid that is more yellowish in color. No active bleeding or blood noted in this area. No large amounts of clear fluid drainage noted at this time. Palpation: Please see Pain drawing on Intake sheet for further detail. (Tenderness = T, Nontender = NT, Swelling = S, Ecchymosis = E) Findings on Midline and paraspinal palpation and percussion: Cervical: NT Thoracic: NT Lumbar: NT Sacral: NT Special findings: none POSTURAL and MUSCULO-SKELETAL EVALUATION: Neck ROM: [Unrestricted in six directions] Lumbar ROM: [restricted in six directions secondary to surgery Shoulder ROM: Symmetric in abduction, ER/IR Hip ROM: Symmetric in abduction, adduction, ER/IR Knee ROM: Symmetric and intact in Flexion / extension Hands: Normal appearing structure L and R Feet: Normal appearing structure L and R VASCULAR STATUS : Wrist Pulses: [2/4 bilateral radial and ulnar] Pedal Pulses: [2/4 bilateral DP and PT] Color: [Normal] Edema: [None] NEUROLOGIC EXAMINATION: Mental Status: Awake and alert, fully oriented, with normal attention, concentration and memory, and fluent, appropriate speech. Cranial Nerves: I: Olfactory not tested. II: Visual acuity normal, no visual field deficit noted with confrontation. III,IV: Normal pupillary reflexes & intact extraocular movements without nystagmus. V,: Intact symmetrical facial sensation. VII: Intact symmetrical facial motor movement VIII: Hearing intact. IX,X: Intact gag, swallow, & normal voice. XI: Sternocleidomastoid, trapezius function intact. XII: Tongue midline with normal movements. Special Tests: L'hermitte's Sign: Absent Spurling'Sign: Absent Bilateral Cubital percussion test: Absent Bilateral Aliyah-Tinel sign - Carpal region: Absent Bilateral Straight Leg Raising: Absent Bilateral Motor Exam (0-5/5, N/T) STRENGTH UPPER EXTREMITY [5]/5 in all major muscle groups of the UE b/l [Except:] LOWER EXTREMITY [5]/5 in all major muscle groups of the LE b/l [Except:] REFLEXES Upper Extremity: RIGHT [2]/4 LEFT [2]/4 Lower Extremity: RIGHT [2]/4 LEFT [2]/4 Pathological Reflexes Barahona's: RIGHT [Absent] LEFT [Absent] Babinski: RIGHT [Absent] LEFT [Absent] Clonus: RIGHT [None] LEFT [None] SENSORY Pain and LT sense [Intact C5-T1 and L2-S1] Dermatomal deficit [None] Gait and Functional Evaluation: Ambulatory aids: Independent - Labs CBC & Chem 7: 04/04/22 15:19 04/04/22 16:29 Labs: Abnormal Lab Results - Last 24 Hours (Table) 04/04/22 04/04/22 04/04/22 Range/Units 15:19 15:19 16:29 RBC 3.46 L (3.80-5.40) m/uL Hgb 11.2 L (11.4-16.0) gm/dL Hct 33.5 L (34.0-46.0) % Lymphocytes # 0.8 L (1.0-4.8) k/uL Glucose 135 H 136 H (74-99) mg/dL Assessment and Plan Assessment: 51-year-old female status post irrigation and debridement with draining wound Plan: at this time the patient is not having any headaches or any issues. I did disc uss with her watching this. She is on the schedule tentatively for today for washout irrigation debridement and possible revision repair of her dura. There is however not a large amount of clear fluid coming out of this is more serous fluid 0 sanguinous type fluid and so we will watch it for today keeping her bed rest to let everything somewhat calm down. I discussed this with her she was comfortable with that. We will bolster the bottom of the incision with a stapler 2 and see how this helps. We will watch her closely for any signs or symptoms. She agreed with this we will see how she does.
[2022-04-05] MEDS: SENNOSIDES 8.6 MG TAB PO SCH (08:53)
--- NOTE | 2022-04-05 10:40 | P.CONS ---
History of Present Illness - Reason for Consult Consult date: 04/05/22 Medical management - Chief Complaint Surgical site drainage - History of Present Illness Patient is a 51-year-old female with history of lumbar radiculopathy status post L4 to L5 microdiscectomy, status post another patient on 03/31/22 presenting with concerns of increased drainage from the incision site. [facility] has been consulted for medical management. She denies any significant back pain, or symptoms. Her drainage is mostly clear. She denies any chest pain, shortness of breath, abdominal pain, nausea, vomiting, diarrhea, constipation, or urinary complaints. She denies any chronic medical problems. Since admission, patient has been intermittently tachycardic up to 109, respiratory rate to 20, blood pressure highest at 149/91, saturating well on room air, afebrile. Laboratory workup has been significant for mild normocytic anemia of 11.2, rest of the lab work was otherwise unremarkable. Patient seen and examined at bedside. Pertinent positives and negatives as discussed in HPI, a complete review of systems was performed and all other systems are negative. Vital signs reviewed General: nontoxic, no distress, appears at stated age Derm: warm, dry, dressing not visualized Head: atraumatic, normocephalic, symmetric Eyes: EOMI, no lid lag, anicteric sclera, pupils equal round reactive to light ENT: Nose and ears atraumatic Neck: No thyromegaly, supple Mouth: no lip lesion, mucus membranes moist Cardiovascular: S1S2 reg, no murmur, no edema Lungs: clear to auscultation bilateral, no rhonchi, no rales, no wheeze, no accessory muscle use Abdominal: soft, nontender to palpation, no guarding, no appreciable organomegaly Ext: no gross muscle atrophy, muscle strength muscle strength 5 out of 5 in all 4 extremities, no contractures Neuro: CN II-XII grossly intact Psych: Alert, oriented, appropriate affect Assessment/Plan: Surgical site drainage History of L4 to L5 microdiscectomy -No systemic signs of infection -CBC reviewed, WBC at 7.7 -Pain management and due to prophylaxis per orthopedic surgery -Surgery note reviewed, possible washout irrigation, debridement and possible revision repair of the dura Mild normocytic anemia, hemoglobin 11.2 -Hemoglobin improving from 9.9 previously -No concerns of active bleed No other reported chronic medical problems. -Home medications reviewed Thank you for allowing us to participate in the care of this pleasant patient. Do not hesitate to contact us with questions. Someone can be reached from the [facility] hospitalist group all hours of the day at [phone] or via [employer]. Past Medical History Past Medical History: No Reported History Additional Past Medical History / Comment(s): 2 herniated discs. Varicose veins. History of Any Multi-Drug Resistant Organisms: None Reported Past Surgical History: No Surgical Hx Reported, Back Surgery Additional Past Surgical History / Comment(s): Right knee arthroscopy. lumbar l4-5 lumbar disc Past Anesthesia/Blood Transfusion Reactions: No Reported Reaction, Postoperative Nausea & Vomiting (PONV) Past Psychological History: No Psychological Hx Reported Smoking Status: Never smoker Past Alcohol Use History: Rare Past Drug Use History: None Reported - Past Family History Sister(s) Family Medical History: Cancer Additional Family Medical History / Comment(s): Uterine cancer. Medications and Allergies Home Medications Medication Instructions Recorded Confirmed Type Acetaminophen/Diphenhydramine 1 tab PO HS PRN 03/30/22 04/04/22 History [Tylenol PM 500-25mg] Cyclobenzaprine [Flexeril] 10 mg PO TID #90 tab 04/02/22 04/04/22 Rx Gabapentin 600 mg PO TID #90 tab 04/02/22 04/04/22 Rx Ibuprofen [Motrin] 800 mg PO Q8H #60 tab 04/02/22 04/04/22 Rx cefaDROXiL [Duricef] 500 mg PO Q12HR 10 Days #20 cap 04/02/22 04/04/22 Rx HYDROcodone/APAP 7.5-325MG [[place] 1 tab PO Q4-6H PRN 04/04/22 04/04/22 History 7.5] Sennosides/Docusate Sodium [Senna 1 tab PO DAILY PRN 04/04/22 04/04/22 History Plus 8.6-50 mg Tablet] Allergies Allergy/AdvReac Type Severity Reaction Status Date / Time Sulfa (Sulfonamide AdvReac Rash/Hives Verified 04/04/22 16:44 Antibiotics) Physical Exam Vitals: Vital Signs Temp Pulse Pulse Resp BP BP Pulse Ox 04/05/22 09:06 95 17 04/05/22 08:00 97.6 F 95 17 115/82 99 04/05/22 01:32 98.3 F 106 H 16 113/78 93 L 04/04/22 20:00 98.4 F 109 H 16 98/64 99 04/04/22 19:55 101 H 04/04/22 18:02 98.1 F 94 15 99/67 99 04/04/22 17:35 97.9 F 97 18 100/66 98 04/04/22 14:55 99.3 F 109 H 20 149/91 98 Intake and Output 04/04/22 04/05/22 04/05/22 22:59 06:59 14:59 Intake Total 720 480 Balance 720 480 Intake: Oral 720 480 Other: Voiding Method Toilet # Voids 1 1 2 Weight 83.915 kg Results CBC & Chem 7: 04/04/22 15:19 04/04/22 16:29 Labs: Abnormal Lab Results - Last 24 Hours (Table) 04/04/22 04/04/22 04/04/22 Range/Units 15:19 15:19 16:29 RBC 3.46 L (3.80-5.40) m/uL Hgb 11.2 L (11.4-16.0) gm/dL Hct 33.5 L (34.0-46.0) % Lymphocytes # 0.8 L (1.0-4.8) k/uL Glucose 135 H 136 H (74-99) mg/dL
[2022-04-05] MEDS: SODIUM CHLORIDE 0.9% 1,000 ML IV SCH (17:14)
[2022-04-06] MEDS: GABAPENTIN 300 MG CAP PO SCH ×3 (08:09→21:45)
[2022-04-06] MEDS: SENNOSIDES 8.6 MG TAB PO SCH (08:09)
[2022-04-06] MEDS: CYCLOBENZAPRINE 10 MG TAB PO SCH ×3 (08:09→21:46)
--- NOTE | 2022-04-06 08:21 | P.PN ---
Subjective Progress Note Date: 04/06/22 Principal diagnosis: Incisional wound drainage Patient seen and examined this morning. She states she is doing well. Patient denies any headaches, dizziness, or blurred vision. Surgical incision is well approximated with sutures and chari, dressing is CDI. No drainage noted. Stephanie nunez reports that she has been laying flat, but has been up to the restroom without any difficulty. Patient denies any numbness or tingling to bilateral lower extremities. Patient may increase her activity today with sitting upright. Surgical procedure is on hold for now. We will continue to monitor. Patient has been afebrile, denies nausea/vomiting, or chest pain. Objective - Vital Signs Vital signs: Vital Signs Temp 97.9 F 04/06/22 07:43 Pulse 90 04/06/22 07:43 Resp 17 04/06/22 07:43 BP 105/73 04/06/22 07:43 Pulse Ox 95 04/06/22 07:43 FiO2 Intake & Output 04/05/22 04/06/22 04/06/22 18:59 06:59 18:59 Intake Total 240 0 Balance 240 0 Intake: Intake, IV Titration 240 Amount Sodium Chloride 0.9% 1, 240 000 ml @ 20 mls/hr IV . Q24H [facility] Rx#:[id number] Oral 0 Other: Voiding Method Toilet Toilet # Voids 2 2 - Exam Patient is alert and oriented 3 appears well-nourished well-hydrated is in no acute distress. They do not appear septic. On exam the patient has no tenderness to palpation of her thoracic or lumbar spine. There is no edema or ballottement sign. Surgical incision is well approximated with sutures and chari, dressing CDI. No drainage noted. Lower extremities with [5]/5 strength in all major muscle groups Upper extremities show [5]/5 strength in all major muscle groups. [2]/4DTR all UE and LE b/l Patient shows a negative Homans, Barahona's, negative Babinski's negative clonus bilaterally. negative straight leg raise bilaterally. No tensioning signs. Cranial nerves II through XII are grossly intact. There is FROM that is painless of the b/l UE and LE in all major joints [w/o pain]. They are intact to light touch sensation in L2 to S1 nerve distribution. Patient has palpable dorsalis pedis was posterior tibial pulses. Compartments are soft and compressible. - Labs CBC & Chem 7: 04/04/22 15:19 04/04/22 16:29 Assessment and Plan Assessment: s/p Lumbar irrigation and debridement Plan: Plan: -Appreciate wound care center consultant and team management. -Activity: Patient may slowly increase her activity level today. She may sit upright in chair or bed. -Pain control: Adequate at this time -Meds: reviewed -GI ppx: senna, Miralax -DVT PPX: Heparin -Hygiene: Maintain dressing clean and dry. Meticulous cleaning after BMs away from the incision site -Encourage IS 10x/hr -Dispo: We will continue to monitor incision site. Surgical procedure has been placed on hold for now. *I reviewed and discussed this case with my attending Dr. Myers, whom has reviewed this chart and films and is in agreement with assessment and plan of care as outlined above. I have personally seen and examined the patient, performed the documentation and the assessment and plan as written. Number of minutes spent on the visit: 20m.
[2022-04-06] MEDS: HYDROcodone/APAP 7.5-325MG 1 EACH TAB PO PRN ×3 (12:19→23:59)
--- NOTE | 2022-04-06 13:14 | P.PN ---
Subjective Progress Note Date: 04/06/22 Subjective: Patient seen and examined at bedside. No acute events overnight. She claims that she is able to ambulate. She still has minimal back pain around the incision site. She denies any difficulty with eating or drinking, denies any chest pain, shortness breath, abdominal pain, urinary or bowel complaints. Pertinent positives and negatives as discussed above, a complete review of systems was performed and all other systems are negative. Vitals Signs Reviewed. General: nontoxic, no distress, appears at stated age Derm: warm, dry, dressing not visualized Head: atraumatic, normocephalic, symmetric Eyes: EOMI, no lid lag, anicteric sclera, pupils equal round reactive to light ENT: Nose and ears atraumatic Neck: No thyromegaly, supple Mouth: no lip lesion, mucus membranes moist Cardiovascular: S1S2 reg, no murmur, no edema Lungs: clear to auscultation bilateral, no rhonchi, no rales, no wheeze, no accessory muscle use Abdominal: soft, nontender to palpation, no guarding, no appreciable organomegaly Ext: no gross muscle atrophy, muscle strength muscle strength 5 out of 5 in all 4 extremities, no contractures Neuro: CN II-XII grossly intact Psych: Alert, oriented, appropriate affect Assessment and Plan: Surgical site drainage History of L4 to L5 microdiscectomy -No systemic signs of infection -Pain management and due to prophylaxis per orthopedic surgery -Surgery note reviewed, no drainage noted in the OR Mild normocytic anemia, hemoglobin 11.2 -Hemoglobin improving from 9.9 previously -No concerns of active bleed No other reported chronic medical problems. -Home medications reviewed Medically optimized for discharge home. Thank you for allowing us to participate in the care of this pleasant patient. Do not hesitate to contact us with questions. Someone can be reached from the [facility] hospitalist group all hours of the day at [phone] or via [employer]. Objective - Vital Signs Vital signs: Vital Signs Temp 98.0 F 04/06/22 12:31 Pulse 112 H 04/06/22 12:31 Resp 18 04/06/22 12:31 BP 114/85 04/06/22 12:31 Pulse Ox 94 L 04/06/22 12:31 FiO2 Intake & Output 04/05/22 04/06/22 04/06/22 18:59 06:59 18:59 Intake Total 240 0 Balance 240 0 Intake: Intake, IV Titration 240 Amount Sodium Chloride 0.9% 1, 240 000 ml @ 20 mls/hr IV . Q24H [facility] Rx#:[id number] Oral 0 Other: Voiding Method Toilet Toilet Toilet # Voids 2 2 - Labs CBC & Chem 7: 04/04/22 15:19 04/04/22 16:29
[2022-04-06] MEDS: IBUPROFEN 400 MG TAB PO PRN (14:18)
[2022-04-06] MEDS: SODIUM CHLORIDE 0.9% 1,000 ML IV SCH (17:19)
[2022-04-07] MEDS: GABAPENTIN 300 MG CAP PO SCH ×3 (08:49→21:46)
[2022-04-07] MEDS: SENNOSIDES 8.6 MG TAB PO SCH (08:49)
[2022-04-07] MEDS: CYCLOBENZAPRINE 10 MG TAB PO SCH ×3 (08:50→21:46)
--- NOTE | 2022-04-07 10:12 | P.PN ---
Subjective Progress Note Date: 04/07/22 Principal diagnosis: Low back pain; incisional drainage Patient was seen at bedside this morning sitting up at the edge of bed. Patient says she has not had any headaches in the past couple days. She says she has been ambulating under her own power and is hoping to go home today. Patient denies any new changes. Patient says she is is having generalized low back pain at this time. Patient says she has been urinating daily. Patient denies chest pain, fever, shortness of breath, nausea, vomiting, change in vision, loss of bladder control. Objective - Vital Signs Vital signs: Vital Signs Temp 97.9 F 04/07/22 07:10 Pulse 87 04/07/22 07:10 Resp 18 04/07/22 07:10 BP 122/86 04/07/22 07:10 Pulse Ox 98 04/07/22 07:10 FiO2 Intake & Output 04/06/22 04/07/22 04/07/22 18:59 06:59 18:59 Intake Total 50 890 Balance 50 890 Intake: Intake, IV Titration 50 290 Amount Sodium Chloride 0.9% 1, 240 000 ml @ 20 mls/hr IV . Q24H [facility] Rx#:[id number] ceFAZolin 2 gm In Sodium 50 50 Chloride 0.9% 50 ml @ 100 mls/hr IVPB Q8HR [facility] Rx# :[id number] Oral 600 Other: Voiding Method Toilet Toilet # Voids 3 2 - Exam Inspection: Dressing present midline lower lumbar spine. Dressing appears to be somewhat saturated with dark yellow drainage. Negative for any active drainage. There is some erythema surrounding the incision at the proximal and distal asp ects. [address] at distal aspect of incision. Nylon sutures appear to be well aligned and intact at this time. incision appears to be healing at this time. Negative for any fluctuance/purulence. dressing changed at bedside this morning. Sensation: Sensation is equal, symmetric, and intact throughout the upper and lower extremities. Palpation: There is a fair amount of tenderness to palpation around incision at the lumbar spine. Nontender to palpation throughout exam. Range of motion: Patient does have full range motion of bilateral upper and lower extremities on exam Motor exam: 4+/5 in all major motor groups Neurovascular status: Radial pulses intact bilaterally, 2+. Cap refill is under 3 seconds in digits upper extremities Special tests: Negative clonus bilaterally. Negative Kelley bilaterally. Negative Homans bilaterally. - Labs CBC & Chem 7: 04/04/22 15:19 04/04/22 16:29 Assessment and Plan Assessment: 1. Low back pain; headaches; incisional drainage 2. History of L4-L5 microdiscectomy Plan: 1. Low back pain; headaches; incisional drainage - patient did have revision L4 to L5 microdiscectomy performed on 03/31/2022. Patient does present with continued drainage from incision that has become dark yellow in color. dressing changed at bedside this morning. Patient sx are improving. She says she has not had any headaches within the past couple days. At this time we are recommending surgical intervention in the form of revision incision and drainage of wound on lumbar spine and dural repair, tmrw, 04/08/2022. Patient is to be nothing by mouth at midnight tonight. Bed is to remain in supine position at all times. We'll continue to follow patient during her stay in hospital. 2. Appreciate medical management 3. Pain management - Flexeril; [place]; gabapentin 4. GI prophylaxis - senna 5. PT/OT - weightbearing as tolerated with walker as needed 6. Encourage incentive spirometer use Time with Patient: Less than 30
--- NOTE | 2022-04-07 15:03 | P.PN ---
Subjective Progress Note Date: 04/07/22 Subjective: Patient seen and examined at bedside. No acute events overnight. She claims that she is able to ambulate. She still has minimal back pain around the incision site. However, overnight she did have some increased serous drainage from her incision site. She denies any difficulty with eating or drinking, denies any chest pain, shortness breath, abdominal pain, urinary or bowel complaints. Pertinent positives and negatives as discussed above, a complete review of sys tems was performed and all other systems are negative. Vitals Signs Reviewed. General: nontoxic, no distress, appears at stated age Derm: warm, dry, dressing not visualized Head: atraumatic, normocephalic, symmetric Eyes: EOMI, no lid lag, anicteric sclera, pupils equal round reactive to light ENT: Nose and ears atraumatic Neck: No thyromegaly, supple Mouth: no lip lesion, mucus membranes moist Cardiovascular: S1S2 reg, no murmur, no edema Lungs: clear to auscultation bilateral, no rhonchi, no rales, no wheeze, no accessory muscle use Abdominal: soft, nontender to palpation, no guarding, no appreciable organomegaly Ext: no gross muscle atrophy, muscle strength muscle strength 5 out of 5 in all 4 extremities, no contractures Neuro: CN II-XII grossly intact Psych: Alert, oriented, appropriate affect Assessment and Plan: Surgical site drainage History of L4 to L5 microdiscectomy -No systemic signs of infection -Pain management and due to prophylaxis per orthopedic surgery -Surgery note reviewed, will likely need OR for possible washout and repair of dura -On cefazolin 2 g IV every 8 hours Mild normocytic anemia -Improving -No concerns of active bleed No other reported chronic medical problems. -Home medications reviewed Thank you for allowing us to participate in the care of this pleasant patient. Do not hesitate to contact us with questions. Someone can be reached from the [facility] hospitalist group all hours of the day at [phone] or via perfect serve. Objective - Vital Signs Vital signs: Vital Signs Temp 98.2 F 04/07/22 12:38 Pulse 112 H 04/07/22 12:38 Resp 20 04/07/22 12:38 BP 128/91 04/07/22 12:38 Pulse Ox 94 L 04/07/22 12:38 FiO2 Intake & Output 04/06/22 04/07/22 04/07/22 18:59 06:59 18:59 Intake Total 50 890 Balance 50 890 Intake: Intake, IV Titration 50 290 Amount Sodium Chloride 0.9% 1, 240 000 ml @ 20 mls/hr IV . Q24H [facility] Rx#:[id number] ceFAZolin 2 gm In Sodium 50 50 Chloride 0.9% 50 ml @ 100 mls/hr IVPB Q8HR [facility] Rx# :[id number] Oral 600 Other: Voiding Method Toilet Toilet Toilet # Voids 3 2 - Labs CBC & Chem 7: 04/04/22 15:19 04/04/22 16:29
[2022-04-07] MEDS: SODIUM CHLORIDE 0.9% 1,000 ML IV SCH (17:04)
[2022-04-07] MEDS ORDERED: ALPRAZolam 0.5 MG TAB PO PRN (20:30)
[2022-04-07] MEDS ORDERED: cloNIDine HCL 0.1 MG TAB PO PRN (20:31)
[2022-04-07] MEDS: HYDROcodone/APAP 7.5-325MG 1 EACH TAB PO PRN (23:27)
[2022-04-08 05:13] LABS: HCT 32.7 % (34.0-46.0); HGB 10.9 gm/dL (11.4-16.0); MCH 31.7 pg (25.0-35.0); MCHC 33.2 g/dL (31.0-37.0); MCV 95.4 fL (80.0-100.0); Mean Platelet Volume 7.6; Platelet Count 295 k/uL (150-450); RBC 3.43 m/uL (3.80-5.40); RDW 12.4 % (11.5-15.5); WBC 5.9 k/uL (3.8-10.6)
[2022-04-08 05:24] LABS: African American GFR (CKD) >90 (>60 ml/min/1.73 sqM); Anion Gap 9 mmol/L; Blood Urea Nitrogen 13 mg/dL (7-17); Calcium 8.6 mg/dL (8.4-10.2); Carbon Dioxide 24 mmol/L (22-30); Chloride 106 mmol/L (98-107); Glucose 130 mg/dL (74-99); Non-African American GFR(CKD) >90 (>60 ml/min/1.73 sqM); Potassium 4.4 mmol/L (3.5-5.1); Sodium 139 mmol/L (137-145)
--- NOTE | 2022-04-08 08:17 | P.PN ---
Subjective Progress Note Date: 04/08/22 Principal diagnosis: Low back pain; incisional drainage Patient was seen at bedside this morning lying in semirecumbent position. Patient says she has not had any headaches in the past couple days. She says she has been ambulating under her own power. Patient denies any new changes. Patient says she is is having generalized low back pain at this time. Patient says she has been urinating daily. Patient denies chest pain, fever, shortness of breath, nausea, vomiting, change in vision, loss of bladder control. Objective - Vital Signs Vital signs: Vital Signs Temp 98.0 F 04/08/22 02:00 Pulse 100 04/08/22 02:00 Resp 18 04/08/22 02:00 BP 114/73 04/08/22 02:00 Pulse Ox 97 04/08/22 02:00 FiO2 Intake & Output 04/07/22 04/08/22 04/08/22 18:59 06:59 18:59 Intake Total 290 290 Balance 290 290 Intake: Intake, IV Titration 290 290 Amount Sodium Chloride 0.9% 1, 240 240 000 ml @ 20 mls/hr IV . Q24H [facility] Rx#:[id number] ceFAZolin 2 gm In Sodium 50 50 Chloride 0.9% 50 ml @ 100 mls/hr IVPB Q8HR [facility] Rx# :[id number] Other: Voiding Method Toilet Toilet # Voids 3 2 - Exam Inspection: Dressing present midline lower lumbar spine. Dressing appears to be somewhat saturated with dark yellow drainage. Negative for any active drainage. There is some erythema surrounding the incision at the proximal and distal aspects. [address] at distal aspect of incision. Nylon sutures appear to be well aligned and intact at this time. Sensation: Sensation is equal, symmetric, and intact throughout the upper and lower extremities. Palpation: There is a fair amount of tenderness to palpation around incision at the lumbar spine. Nontender to palpation throughout exam. Range of motion: Patient does have full range motion of bilateral upper and lower extremities on exam Motor exam: 4+/5 in all major motor groups Neurovascular status: Radial pulses intact bilaterally, 2+. Cap refill is under 3 seconds in digits upper extremities Special tests: Negative clonus bilaterally. Negative Kelley bilaterally. Negative Homans bilaterally. - Labs CBC & Chem 7: 04/08/22 04:41 04/08/22 04:41 Labs: Abnormal Lab Results - Last 24 Hours (Table) 04/08/22 04/08/22 Range/Units 04:41 04:41 RBC 3.43 L (3.80-5.40) m/uL Hgb 10.9 L (11.4-16.0) gm/dL Hct 32.7 L (34.0-46.0) % Glucose 130 H (74-99) mg/dL Assessment and Plan Assessment: 1. Low back pain; headaches; incisional drainage 2. History of L4-L5 microdiscectomy Plan: 1. Low back pain; headaches; incisional drainage - patient did have revision L4 to L5 microdiscectomy performed on 03/31/2022. Patient does present with continued drainage from incision that has become dark yellow in color. Patient sx are improving. She says she has not had any headaches within the past couple days. At this time we are recommending surgical intervention in the form of revision incision and drainage of wound on lumbar spine and dural repair, today, 04/08/2022. Patient is to be remain nothing by mouth today. Bed is to remain in supine position at all times. We'll continue to follow patient during her stay in hospital. 2. Appreciate medical management 3. Pain management - Flexeril; [place]; gabapentin 4. GI prophylaxis - senna 5. PT/OT - weightbearing as tolerated with walker as needed 6. Encourage incentive spirometer use Time with Patient: Less than 30
[2022-04-08] MEDS: GABAPENTIN 300 MG CAP PO SCH ×3 (09:13→21:34)
[2022-04-08] MEDS: CYCLOBENZAPRINE 10 MG TAB PO SCH ×3 (09:14→21:35)
[2022-04-08] MEDS: SENNOSIDES 8.6 MG TAB PO SCH (09:14)
[2022-04-08] MEDS ORDERED: LACTATED RINGERS 1,000 ML IV ONE ×3 (13:45→16:43)
[2022-04-08] MEDS ORDERED: GLYCOPYRROLATE 0.2 MG/ML 2 ML VIAL ONE (13:55)
[2022-04-08] MEDS ORDERED: MIDAZOLAM 2 MG/2 ML VIAL ONE (13:55)
[2022-04-08] MEDS ORDERED: LIDOCAINE 2% INJ 20 MG/ML (2 ML VIAL) ONE (13:55)
[2022-04-08] MEDS ORDERED: SUCCINYLCHOLINE CHLORIDE 200 MG/10 ML VIAL IV ONE (13:55)
[2022-04-08] MEDS ORDERED: HYDROmorphone (PF) 1 MG/ML ONE (13:55)
[2022-04-08] MEDS ORDERED: fentaNYL (PF) 50 MCG/ML 2 ML AMP ONE (13:55)
[2022-04-08] MEDS ORDERED: PROPOFOL 10 MG/ML 20 ML VIAL IV ONE (13:55)
[2022-04-08] MEDS ORDERED: NEOSTIGMINE 1 MG/ML 10 ML VIAL ONE (13:55)
[2022-04-08] MEDS ORDERED: ROCURONIUM 10 MG/ML (5 ML VIAL) IV ONE (13:55)
[2022-04-08] MEDS ORDERED: PHENYLEPHRINE-0.9% NACL SYG 1,000 MCG/10 ML SYRINGE ONE (13:55)
[2022-04-08] MEDS ORDERED: ONDANSETRON 4 MG/2 ML VIAL ONE (13:56)
[2022-04-08] MEDS ORDERED: DEXAMETHASONE SOD PHOSPHATE 4 MG/ML 1 ML VIAL IVP ONE (14:03)
[2022-04-08] MEDS ORDERED: ONDANSETRON 4 MG/2 ML VIAL IVP ONE (14:04)
[2022-04-08] MEDS ORDERED: SCOPOLAMINE 1 MG/72 HR PATCH TRANSDERM ONE (14:05)
--- NOTE | 2022-04-08 14:23 | P.PN ---
Subjective Progress Note Date: 04/08/22 Subjective: Patient seen and examined at bedside. No acute events overnight. She claims that she is able to ambulate. She still has minimal back pain around the incision site. Continues to have increased serous drainage from her incision site. She denies any difficulty with eating or drinking, denies any chest pain, shortness breath, abdominal pain, urinary or bowel complaints. Pertinent positives and negatives as discussed above, a complete review of systems was performed and all other systems are negative. Vitals Signs Reviewed. General: nontoxic, no distress, appears at stated age Derm: warm, dry, dressing not visualized Head: atraumatic, normocephalic, symmetric Eyes: EOMI, no lid lag, anicteric sclera, pupils equal round reactive to light ENT: Nose and ears atraumatic Neck: No thyromegaly, supple Mouth: no lip lesion, mucus membranes moist Cardiovascular: S1S2 reg, no murmur, no edema Lungs: clear to auscultation bilateral, no rhonchi, no rales, no wheeze, no accessory muscle use Abdominal: soft, nontender to palpation, no guarding, no appreciable org anomegaly Ext: no gross muscle atrophy, muscle strength muscle strength 5 out of 5 in all 4 extremities, no contractures Neuro: CN II-XII grossly intact Psych: Alert, oriented, appropriate affect Assessment and Plan: Surgical site drainage History of L4 to L5 microdiscectomy -No systemic signs of infection -Pain management and due to prophylaxis per orthopedic surgery -Surgery note reviewed, possible CSF leak, plan for OR today for revision, I&D with possible dural repair with patch graft -On cefazolin 2 g IV every 8 hours Mild normocytic anemia with stable -Hemoglobin 10.9 -No concerns of active bleed No other reported chronic medical problems. -BMP reviewed, sodium 139, potassium 4.4, BUN 13, creatinine 0.5 to Thank you for allowing us to participate in the care of this pleasant patient. Do not hesitate to contact us with questions. Someone can be reached from the [facility] hospitalist group all hours of the day at [phone] or via perfect serve. Objective - Vital Signs Vital signs: Vital Signs Temp 97.8 F 04/08/22 13:54 Pulse 64 04/08/22 13:54 Resp 16 04/08/22 13:54 BP 150/97 04/08/22 13:54 Pulse Ox 98 04/08/22 13:54 FiO2 Intake & Output 04/07/22 04/08/22 04/08/22 18:59 06:59 18:59 Intake Total 290 290 100 Balance 290 290 100 Weight 83.9 kg Intake: IV 100 Intake, IV Titration 290 290 Amount Sodium Chloride 0.9% 1, 240 240 000 ml @ 20 mls/hr IV . Q24H [facility] Rx#:[id number] ceFAZolin 2 gm In Sodium 50 50 Chloride 0.9% 50 ml @ 100 mls/hr IVPB Q8HR [facility] Rx# :[id number] Other: Voiding Method Toilet Toilet Toilet # Voids 3 2 - Labs CBC & Chem 7: 04/08/22 04:41 04/08/22 04:41 Labs: Abnormal Lab Results - Last 24 Hours (Table) 04/08/22 04/08/22 Range/Units 04:41 04:41 RBC 3.43 L (3.80-5.40) m/uL Hgb 10.9 L (11.4-16.0) gm/dL Hct 32.7 L (34.0-46.0) % Glucose 130 H (74-99) mg/dL
[2022-04-08] MEDS ORDERED: VANCOMYCIN 1,000 MG VIAL MISCELLANE ONE (15:15)
[2022-04-08] MEDS ORDERED: LIDOCAINE 1%/EPI 1:200,000 MPF 10 ML VIAL SQ ONE ×2 (15:16→15:42)
[2022-04-08] MEDS ORDERED: HYDROmorphone 0.5 MG/0.5 ML SYRINGE IVP PRN (15:58)
[2022-04-08] MEDS ORDERED: MAGNESIUM HYDROXIDE 2,400 MG/10 ML CUP PO PRN (15:58)
[2022-04-08] MEDS ORDERED: SENNOSIDES-DOCUSATE SODIUM 1 EACH TAB PO PRN (15:58)
[2022-04-08] MEDS ORDERED: VANCOMYCIN IV PER PHARMACY 1 EACH MISC MISCELLANE PRN (16:13)
[2022-04-08] MEDS ORDERED: GENTAMICIN PER PHARMACY MISCELLANE SCH (16:15)
[2022-04-08] MEDS ORDERED: HYDROmorphone 0.5 MG/0.5 ML SYRINGE IVP ONE ×3 (16:21→17:12)
[2022-04-08] MEDS ORDERED: VANCOMYCIN 1,500 MG in SODIUM CHLORIDE 0.9% 500 ML 500 ML IVPB SCH (17:00)
[2022-04-08] MEDS ORDERED: GENTAMICIN 500 MG in SODIUM CHLORIDE 0.9% 100 ML IVPB SCH (17:00)
[2022-04-08] MEDS: HYDROcodone/APAP 7.5-325MG 1 EACH TAB PO PRN (18:01)
[2022-04-08] MEDS: SODIUM CHLORIDE 0.9% 1,000 ML IV SCH (18:03)
[2022-04-08] MEDS: LACTATED RINGERS 1,000 ML IV SCH (18:04)
[2022-04-08] MEDS: ACETAMINOPHEN TAB 325 MG TAB PO SCH ×2 (18:06→23:02)
[2022-04-08] MEDS: HYDROmorphone 1 MG/ML 1 ML SYRINGE IVP PRN ×2 (19:59→23:02)
[2022-04-08] MEDS: VANCOMYCIN 1,500 MG in SODIUM CHLORIDE 0.9% 500 ML 500 ML IVPB SCH (20:01)
[2022-04-09] MEDS ORDERED: GENTAMICIN TROUGH DUE 1 EACH MISC MISCELLANE ONE (02:00)
[2022-04-09] MEDS: HYDROmorphone 1 MG/ML 1 ML SYRINGE IVP PRN ×7 (02:03→20:52)
[2022-04-09] MEDS: LACTATED RINGERS 1,000 ML IV SCH ×2 (02:03→13:54)
[2022-04-09 03:51] LABS: Basophils % (A) 0 %; Eosinophils % (A) 0 %; HCT 30.5 % (34.0-46.0); HGB 10.3 gm/dL (11.4-16.0); Lymphocytes # (A) 0.6 k/uL (1.0-4.8); Lymphocytes % (A) 7 %; MCHC 33.8 g/dL (31.0-37.0); MCV 94.5 fL (80.0-100.0); Mean Platelet Volume 7.9; Monocytes # (A) 0.4 k/uL (0-1.0); Monocytes % (A) 4 %; Neutrophils # (A) 7.9 k/uL (1.3-7.7); Neutrophils % (A) 88 %; Platelet Count 285 k/uL (150-450); RBC 3.23 m/uL (3.80-5.40); RDW 12.5 % (11.5-15.5)
[2022-04-09 04:02] LABS: African American GFR (CKD) >90 (>60 ml/min/1.73 sqM); Anion Gap 6 mmol/L; Blood Urea Nitrogen 13 mg/dL (7-17); Calcium 8.4 mg/dL (8.4-10.2); Carbon Dioxide 26 mmol/L (22-30); Chloride 104 mmol/L (98-107); Glucose 145 mg/dL (74-99); Non-African American GFR(CKD) >90 (>60 ml/min/1.73 sqM); Potassium 4.5 mmol/L (3.5-5.1); Sodium 136 mmol/L (137-145)
[2022-04-09] MEDS: ACETAMINOPHEN TAB 325 MG TAB PO SCH ×3 (05:05→16:19)
[2022-04-09] MEDS: VANCOMYCIN 1,500 MG in SODIUM CHLORIDE 0.9% 500 ML 500 ML IVPB SCH (06:31)
[2022-04-09] MEDS: GABAPENTIN 300 MG CAP PO SCH ×3 (08:01→22:10)
[2022-04-09] MEDS: CYCLOBENZAPRINE 10 MG TAB PO SCH ×3 (08:02→22:10)
[2022-04-09] MEDS: SENNOSIDES 8.6 MG TAB PO SCH (08:02)
[2022-04-09] MEDS: HYDROcodone/APAP 7.5-325MG 1 EACH TAB PO PRN (10:17)
--- NOTE | 2022-04-09 10:22 | P.PN ---
Subjective Progress Note Date: 04/09/22 Principal diagnosis: Low back pain; incisional drainage Patient was seen at bedside this morning lying supine position with present during encounter. Patient says she is doing well this morning. Patient says overnight she urinated several times. Patient says she is having some generalized low back pain, however, she says pain medication seems to be helping control her pain. Patient denies chest pain, fever, shortness of breath, nausea, vomiting, headaches, loss of bowel/bladder control. Objective - Vital Signs Vital signs: Vital Signs Temp 97.8 F 04/09/22 07:29 Pulse 98 04/09/22 07:29 Resp 17 04/09/22 07:29 BP 105/69 04/09/22 07:29 Pulse Ox 96 04/09/22 07:29 FiO2 Intake & Output 04/08/22 04/09/22 04/09/22 18:59 06:59 18:59 Intake Total 1300 2000 Output Total 15 Balance 1285 2000 Weight 83.9 kg Intake: IV 1300 Intake, IV Titration 1700 Amount Lactated Ringers 1,000 ml 1200 @ 100 mls/hr IV .Q10H DONTE Rx#:[id number] Vancomycin 1,500 mg In 500 Sodium Chloride 0.9% 500 ml 500 ml @ 167 mls/hr IVPB Q12H DONTE Rx#: [id number] Oral 300 Output: Estimated Blood Loss 15 Other: Voiding Method Toilet Toilet # Voids 2 - Exam Inspection: Dressing present midline lower lumbar spine. Dressing appears to be intact at this time. Negative for any excessive drainage. We'll maintain dressing at this time and plan for dressing change tomorrow. Sensation: Sensation is equal, symmetric, and intact throughout the upper and lower extremities. Palpation: There is a fair amount of tenderness to palpation around incision at the lumbar spine. Nontender to palpation throughout exam. Range of motion: Patient does have full range motion of bilateral upper and lower extremities on exam Motor exam: 4+/5 in all major motor groups Neurovascular status: Radial pulses intact bilaterally, 2+. Cap refill is under 3 seconds in digits upper extremities Special tests: Negative clonus bilaterally. Negative Kelley bilaterally. Negative Homans bilaterally. - Labs CBC & Chem 7: 04/09/22 03:39 04/09/22 03:39 Labs: Abnormal Lab Results - Last 24 Hours (Table) 04/09/22 04/09/22 Range/Units 03:39 03:39 RBC 3.23 L (3.80-5.40) m/uL Hgb 10.3 L (11.4-16.0) gm/dL Hct 30.5 L (34.0-46.0) % Neutrophils # 7.9 H (1.3-7.7) k/uL Lymphocytes # 0.6 L (1.0-4.8) k/uL Sodium 136 L (137-145) mmol/L Creatinine 0.46 L (0.52-1.04) mg/dL Glucose 145 H (74-99) mg/dL Microbiology - Last 24 Hours (Table) 04/08/22 14:40 Gram Stain - Preliminary Back Wound Culture - Preliminary 04/08/22 14:40 Anaerobic Culture - Preliminary Back Assessment and Plan Assessment: 1. Low back pain' incisional drainage -Postop day 1 status post low back incisional drainage 2. History of L4-L5 microdiscectomy Plan: 1. Low back pain; incisional drainage - patient did have revision L4 to L5 microdiscectomy performed on 03/31/2022. Yesterday, 05/06/2022, patient did have revision I&D. Patient stable at bedside this morning lying the supine position. Cultures from previous surgery did come back positive for gram- negative bacteria. Infectious disease has been consulted for further management for this. We'll maintain dressing in place at this time. Continue current antibiotics for now. Plan for dressing change tomorrow. At this time we recommend patient to remain supine throughout the day. Patient may sit up in chair during meals/to use the bathroom. Bed is to remain in supine position at all times. Regular diet. Weightbearing as tolerated with walker as needed. We'll continue to follow patient during her stay in hospital. 2. Appreciate medical management; appreciate sections disease management management 3. Pain management - Flexeril; [place]; gabapentin 4. GI prophylaxis - senna 5. PT/OT - weightbearing as tolerated with walker as needed 6. Encourage incentive spirometer use 7. Discharge planning - pending Time with Patient: Less than 30
[2022-04-09] MEDS: CEFEPIME 2 GM in SODIUM CHLORIDE 0.9% 100 ML IVPB SCH ×2 (11:15→16:04)
--- NOTE | 2022-04-09 11:21 | P.CONS ---
History of Present Illness - Reason for Consult Consult date: 04/09/22 Wound infection Requesting physician: Mason Myers - Chief Complaint Pain and Drainage from the surgical site x days - History of Present Illness Patient is a 51-year-old female with a past medical history significant for chronic back pain from herniated disc and history of varicose vein patient did have a L4-L5 microdiscectomy completed on 03/15/2022, patient apparently did have a postop drainage from her incision for the patient did have revision of L4-L5 microdiscectomy on 03/31/2022 which were finalized with Enterobacter on 04/02/2022 patient did have blood culture done on 03/30/2022 which has been negative, patient was taken back to the OR yesterday on 04/08/2022 status post repeat surgery with operative report currently pending the patient was started on gentamicin and vancomycin last evening infectious disease was consulted on a Monday evening for further management of antibiotic therapy concerning for wound infection. On today's evaluation that is 04/09/2022 patient denies having any fever or any chills, patient did have a low-grade fever of 99.3 on admission however no fevers have been recorded since then patient denies having any headache or URI symptoms no chest pain shortness of breath or cough no abdominal pain no diarrhea she did complain of some lower back pain more of a dull aching 3-4 out of 10 having no radiation, patient did have a surgical dressing on antibiotic nursing staff he cannot remove the dressing until tomorrow Review of Systems Positive point has been mentioned in the HPI rest of the systems are negative Past Medical History Past Medical History: No Reported History Additional Past Medical History / Comment(s): 2 herniated discs. Varicose veins. History of Any Multi-Drug Resistant Organisms: None Reported Past Surgical History: No Surgical Hx Reported, Back Surgery Additional Past Surgical History / Comment(s): Right knee arthroscopy. lumbar l4-5 lumbar disc Past Anesthesia/Blood Transfusion Reactions: No Reported Reaction, Postoperative Nausea & Vomiting (PONV) Past Psychological History: No Psychological Hx Reported Smoking Status: Never smoker Past Alcohol Use History: Rare Past Drug Use History: None Reported - Past Family History Sister(s) Family Medical History: Cancer Additional Family Medical History / Comment(s): Uterine cancer. Medications and Allergies Home Medications Medication Instructions Recorded Confirmed Type Acetaminophen/Diphenhydramine 1 tab PO HS PRN 03/30/22 04/04/22 History [Tylenol PM 500-25mg] Cyclobenzaprine [Flexeril] 10 mg PO TID #90 tab 04/02/22 04/04/22 Rx Gabapentin 600 mg PO TID #90 tab 04/02/22 04/04/22 Rx Ibuprofen [Motrin] 800 mg PO Q8H #60 tab 04/02/22 04/04/22 Rx cefaDROXiL [Duricef] 500 mg PO Q12HR 10 Days #20 cap 04/02/22 04/04/22 Rx HYDROcodone/APAP 7.5-325MG [[place] 1 tab PO Q4-6H PRN 04/04/22 04/04/22 History 7.5] Sennosides/Docusate Sodium [Senna 1 tab PO DAILY PRN 04/04/22 04/04/22 History Plus 8.6-50 mg Tablet] Allergies Allergy/AdvReac Type Severity Reaction Status Date / Time Sulfa (Sulfonamide AdvReac Rash/Hives Verified 04/08/22 13:57 Antibiotics) Physical Exam Vitals: Vital Signs Temp Pulse Resp BP Pulse Ox 04/09/22 07:29 97.8 F 98 17 105/69 96 04/09/22 01:58 98.3 F 113 H 18 116/72 96 04/08/22 19:55 18 04/08/22 19:15 105 H 106/74 04/08/22 19:00 95 110/79 04/08/22 18:45 98 111/79 04/08/22 18:30 98 120/83 04/08/22 18:15 102 H 126/81 04/08/22 18:00 98 116/84 04/08/22 17:45 97.4 F L 84 18 123/81 98 04/08/22 17:29 79 16 133/78 97 04/08/22 17:14 87 16 138/81 98 04/08/22 16:59 89 16 139/72 97 04/08/22 16:42 99 16 141/62 98 04/08/22 16:27 100 16 139/79 97 04/08/22 16:12 103 H 18 137/72 97 04/08/22 15:57 96.9 F L 112 H 20 129/68 99 04/08/22 13:54 97.8 F 64 16 150/97 98 Intake and Output 04/08/22 04/09/22 04/09/22 22:59 06:59 14:59 Intake Total 600 2000 Output Total 15 Balance 585 2000 Intake: IV 600 Intake, IV Titration 1700 Amount Lactated Ringers 1,000 ml 1200 @ 100 mls/hr IV .Q10H DONTE Rx#:[id number] Vancomycin 1,500 mg In 500 Sodium Chloride 0.9% 500 ml 500 ml @ 167 mls/hr IVPB Q12H DONTE Rx#: [id number] Oral 300 Output: Estimated Blood Loss 15 Other: Voiding Method Toilet # Voids 1 2 GENERAL DESCRIPTION: Middle-aged female lying in bed, no distress. No tachypnea or accessory muscle of respiration use. HEENT: Shows Pallor , no scleral icterus. Oral mucous membrane is dry. No pharyngeal erythema or thrush NECK: Trachea central, no thyromegaly. LUNGS: Unlabored breathing. Clear to auscultation anteriorly. No wheeze or crackle. HEART: S1, S2, regular rate and rhythm. No loud murmur ABDOMEN: Soft, no tenderness , guarding or rigidity, no organomegaly EXTREMITIES: No edema of feet. SKIN: No rash, no masses palpable. NEUROLOGICAL: The patient is awake, alert, oriented x3, mood and affect normal. Results CBC & Chem 7: 04/09/22 03:39 04/09/22 03:39 Labs: Abnormal Lab Results - Last 24 Hours (Table) 04/09/22 04/09/22 Range/Units 03:39 03:39 RBC 3.23 L (3.80-5.40) m/uL Hgb 10.3 L (11.4-16.0) gm/dL Hct 30.5 L (34.0-46.0) % Neutrophils # 7.9 H (1.3-7.7) k/uL Lymphocytes # 0.6 L (1.0-4.8) k/uL Sodium 136 L (137-145) mmol/L Creatinine 0.46 L (0.52-1.04) mg/dL Glucose 145 H (74-99) mg/dL Microbiology - Last 24 Hours (Table) 04/08/22 14:40 Gram Stain - Preliminary Back Wound Culture - Preliminary 04/08/22 14:40 Anaerobic Culture - Preliminary Back Assessment and Plan (1) Postoperative infection Current Visit: No Status: Acute Code(s): T81.40XA - INFECTION FOLLOWING A PROCEDURE, UNSPECIFIED, INIT SNOMED Code(s): 19784449 Plan: 1patient is a 51 year female with a chronic back pain in this patient who is status post L4-L5 microdiscectomy on 03/15/2022 with a postoperative course completed by drainage from her incision site patient did have a revision of her microdiscectomy on 03/31/2022 and she did have a deep cultures came back positive with Enterobacter. 2blood cultures will be repeated and will check into many markers 3discontinue vancomycin and gentamicin decrease risk of nephrotoxicity 4-start the patient on cefepime 2 g every 8 hours Multiple questions concerns were answered in [place]man terms We will follow on clinical condition and cultures to further adjust medication if needed Thank you for this consultation will follow this patient with you Time with Patient: Greater than 30
[2022-04-09] MEDS: HYDROcodone/APAP 10-325MG 1 EACH TAB PO PRN ×2 (13:52→19:55)
[2022-04-09 14:59] VITALS: BMI 30.7
--- NOTE | 2022-04-09 15:07 | P.PN ---
Subjective Progress Note Date: 04/09/22 (Delayed charting seen at 0855) Patient is a 51-year-old female with lumbar radiculopathy, varicose veins, and obesity resented to the ER with complaints of draining wound and headaches. Patient initially underwent surgery on 03/15/22 with an L4 5 microdiscectomy and had some postop drainage from her incision. Patient underwent L4 5 microdiscectomy revision on 216 and cultures were obtained which grew Enterobacter. She was taken back to the OR on 04/08 for I&D. Patient seen and examined at bedside with present. He is having some back pain that wraps around to the right rib cage. She has not had a bowel movement in several days. She did take some extra stool softeners this morning. She denies any nausea or vomiting. Vital signs reviewed General: nontoxic, no distress, appears at stated age Cardiovascular: S1S2 reg, no murmur, positive posterior tibial pulse bilateral, Lungs: CTA bilateral, no rhonchi, no rales , no accessory muscle use Abdominal: soft, nontender to palpation, no guarding, no appreciable organomegaly Ext: no gross muscle atrophy, no edema, no contractures Neuro: CN II-XI grossly intact, no focal neuro deficits Psych: Alert, oriented, appropriate affect Assessment: Low back pain with incisional drainage-status post IND 05/06. Recent culture from 03/31 with Enterobacter. Constipation Anemia, mild, anticipated outcome of procedure Obesity with BMI 30.8 Data Review: Laboratory analysis from today reviewed. White blood cell count 9, hemoglobin 10.3, platelet count 285. Sodium 136, potassium 4.5, chloride 104, BUN 13, creatinine 0.46, glucose 145. - will need to repeat CBC in a.m. monitoring of active infection. Plan: -Infectious disease note reviewed: Ankle mycin and gentamicin have been discontinued to decrease risk of nephrotoxicity, patient was started on cefepime 2 mg IV every 8 hours. -Patient continues to require IV Dilaudid for adequate pain control (she has required 5 mg in the last 24 hours). -Orthopedic surgery recommendations reviewed. Encourage movement, continue with Flexeril, [place], and gabapentin. - DVT prophylaxis per orthopedic surgery. Suggest initiating heparin or Lovenox in a.m. Thank you for allowing us to participate in the care of this pleasant patient. Do not hesitate to contact us with questions. Someone can be reached from the [facility] hospitalist group all hours of the day at [phone] or via perfect serve. Objective - Vital Signs Vital signs: Vital Signs Temp 99.0 F 04/09/22 14:00 Pulse 100 04/09/22 14:00 Resp 16 04/09/22 14:00 BP 124/86 04/09/22 14:00 Pulse Ox 98 04/09/22 14:00 FiO2 Intake & Output 04/08/22 04/09/22 04/09/22 18:59 06:59 18:59 Intake Total 1300 2000 Output Total 15 Balance 1285 1999 Weight 83.9 kg 83.9 kg Intake: IV 1300 Intake, IV Titration 1700 Amount Lactated Ringers 1,000 ml 1200 @ 100 mls/hr IV .Q10H DONTE Rx#:[id number] Vancomycin 1,500 mg In 500 Sodium Chloride 0.9% 500 ml 500 ml @ 167 mls/hr IVPB Q12H DONTE Rx#: [id number] Oral 300 Output: Estimated Blood Loss 15 Other: Voiding Method Toilet Toilet # Voids 2 - Labs CBC & Chem 7: 04/09/22 03:39 04/09/22 03:39 Labs: Abnormal Lab Results - Last 24 Hours (Table) 04/09/22 04/09/22 04/09/22 Range/Units 03:39 03:39 11:45 RBC 3.23 L (3.80-5.40) m/uL Hgb 10.3 L (11.4-16.0) gm/dL Hct 30.5 L (34.0-46.0) % Neutrophils # 7.9 H (1.3-7.7) k/uL Lymphocytes # 0.6 L (1.0-4.8) k/uL Sodium 136 L (137-145) mmol/L Creatinine 0.46 L (0.52-1.04) mg/dL Glucose 145 H (74-99) mg/dL C-Reactive Protein 3.3 H (<1.0) mg/dL Microbiology - Last 24 Hours (Table) 04/08/22 14:40 Gram Stain - Preliminary Back Wound Culture - Preliminary 04/08/22 14:40 Anaerobic Culture - Preliminary Back
[2022-04-09] MEDS: SODIUM CHLORIDE 0.9% 1,000 ML IV SCH (16:05)
[2022-04-09] MEDS ORDERED: LACTULOSE 20 GM/30 ML CUP PO ONE (18:58)
[2022-04-09] MEDS: IBUPROFEN 400 MG TAB PO PRN (22:10)
[2022-04-10] MEDS: HYDROmorphone 1 MG/ML 1 ML SYRINGE IVP PRN ×5 (00:12→21:36)
[2022-04-10] MEDS: CEFEPIME 2 GM in SODIUM CHLORIDE 0.9% 100 ML IVPB SCH ×4 (00:12→23:30)
[2022-04-10] MEDS: LACTATED RINGERS 1,000 ML IV SCH ×3 (00:14→21:04)
[2022-04-10] MEDS: ACETAMINOPHEN TAB 325 MG TAB PO SCH ×5 (00:18→23:31)
[2022-04-10] MEDS: HYDROcodone/APAP 10-325MG 1 EACH TAB PO PRN ×4 (02:06→23:30)
[2022-04-10] MEDS ORDERED: VANCOMYCIN TROUGH DUE 1 EACH MISC MISCELLANE ONE (06:00)
[2022-04-10] MEDS: GABAPENTIN 300 MG CAP PO SCH ×3 (08:05→20:59)
[2022-04-10] MEDS: SENNOSIDES 8.6 MG TAB PO SCH (08:05)
[2022-04-10] MEDS: CYCLOBENZAPRINE 10 MG TAB PO SCH ×3 (08:05→20:59)
--- NOTE | 2022-04-10 09:21 | P.PN ---
Subjective Progress Note Date: 04/10/22 Principal diagnosis: Low back pain; incisional drainage Patient was seen at bedside this morning lying in the supine position with present during encounter. Patient says she is looking forward to having her dressing changed today and hoping to take a sponge bath. Patient says she has urinated daily since surgery. Patient says her pain is 1/10 while lying in bed and can get up to a 6 or 7/10 when she changes positions from supine to sitting and sitting to standing. Patient does feel that the medication has helped control her pain. Patient says she has not had a bowel movement since surgery, however, patient says she has been passing gas. Patient denies chest pain, fever, shortness breath, nausea, vomiting, change in vision, loss of bowel/bladder control. Objective - Vital Signs Vital signs: Vital Signs Temp 97.8 F 04/10/22 08:00 Pulse 98 04/10/22 08:00 Resp 18 04/10/22 08:00 BP 97/66 04/10/22 08:00 Pulse Ox 96 04/10/22 08:00 FiO2 Intake & Output 04/09/22 04/10/22 04/10/22 18:59 06:59 18:59 Intake Total 1700 1800 Balance 1700 1800 Weight 83.9 kg Intake: Intake, IV Titration 1700 1300 Amount Cefepime 2 gm In Sodium 100 100 Chloride 0.9% 100 ml @ 25 mls/hr IVPB Q8HR DONTE Rx# :[id number] Lactated Ringers 1,000 ml 1200 1200 @ 100 mls/hr IV .Q10H DONTE Rx#:[id number] Vancomycin 1,500 mg In 400 Sodium Chloride 0.9% 500 ml 500 ml @ 167 mls/hr IVPB Q12H DONTE Rx#: [id number] Oral 500 Other: Voiding Method Toilet # Voids 3 - Exam Inspection: Surgical dressing removed at bedside this morning. Incision appears to be healing well at this time. Sutures are well aligned and intact. Negative for any active drainage. Plan for dressing change after sponge bath. Sensation: Sensation is equal, symmetric, and intact throughout the upper and lower extremities. Palpation: There is a fair amount of tenderness to palpation around incision at the lumbar spine. Nontender to palpation throughout exam. Range of motion: Patient does have full range motion of bilateral upper and lower extremities on exam Motor exam: 4+/5 in all major motor groups Neurovascular status: Radial pulses intact bilaterally, 2+. Cap refill is under 3 seconds in digits upper extremities Special tests: Negative clonus bilaterally. Negative [place] bilaterally. Negative Homans bilaterally. - Labs CBC & Chem 7: 04/09/22 03:39 04/09/22 03:39 Labs: Abnormal Lab Results - Last 24 Hours (Table) 04/09/22 04/09/22 Range/Units 11:45 11:45 ESR 108 H (0-20) mm/hr C-Reactive Protein 3.3 H (<1.0) mg/dL Microbiology - Last 24 Hours (Table) 04/08/22 14:40 Gram Stain - Preliminary Back Wound Culture - Preliminary Gram Neg Bacilli Assessment and Plan Assessment: 1. Low back pain; incisional drainage -Postop day 2 status post low back incisional drainage 2. History of L4-L5 microdiscectomy Plan: 1. Low back pain; incisional drainage - patient did have revision L4 to L5 microdiscectomy performed on 03/31/2022. Yesterday, 05/06/2022, patient did have revision I&D. Patient stable at bedside this morning lying the supine position. Cultures from previous surgery did come back positive for gram- negative bacilli. Patient on cefepime IV currently. Dressing taken down at bedside this morning. Incision appears to be healing well at this time. Negative for any active drainage. Sutures are well aligned and intact. Continue current antibiotics for now. Needs dressing may be placed after sponge bath. Patient may sit up in chair during meals/to use the bathroom. Head of bed may be elevated to 1015 degrees. Regular diet. Weightbearing as tolerated with walker as needed. We'll continue to follow patient during her stay in hospital. Plan for discharge home without services tomorrow versus Monday 2. Appreciate medical management; appreciate ID management 3. Pain management - Flexeril; [place]; gabapentin 4. GI prophylaxis - senna 5. PT/OT - weightbearing as tolerated with walker as needed 6. Encourage incentive spirometer use 7. Discharge planning - plan for discharge home tomorrow versus Monday Time with Patient: Less than 30
[2022-04-10] MEDS ORDERED: LACTULOSE 20 GM/30 ML CUP PO PRN (09:26)
[2022-04-10] MEDS ORDERED: LACTULOSE 20 GM/30 ML CUP PO ONE (09:45)
[2022-04-10 09:59] LABS: HCT 29.3 % (37.2-46.3); HGB 9.3 g/dL (12.0-15.0); MCH 31.2 pg (27.0-32.0); MCHC 31.7 g/dL (32.0-37.0); MCV 98.3 fL (80.0-97.0); Mean Platelet Volume 10.4 fL (9.5-12.2); NRBC Per 100 WBC 0 /100 WBCS (0.0-0.0); Platelet Count 242 X 10*3/uL (140-440); RBC 2.98 X 10*6/uL (4.10-5.20); RDW 12.5 % (11.5-14.5); WBC 6.44 X 10*3/uL (4.50-10.00)
[2022-04-10 10:07] LABS: African American GFR (CKD) 121.7 (60.0-200.0); Anion Gap 9.1 mmol/L (10.00-18.00); BUN/Creat Ratio 21.11 Ratio (12.00-20.00); Blood Urea Nitrogen 12.6 mg/dL (9.0-27.0); Calcium 8.5 mg/dL (8.7-10.3); Carbon Dioxide 26.6 mmol/L (20.0-27.5); Potassium 4.1 mmol/L (3.5-5.5)
--- NOTE | 2022-04-10 12:40 | P.PN ---
Subjective Progress Note Date: 04/10/22 Principal diagnosis: Lumbar surgical site infection Patient is a 51-year-old female with a past medical history significant for chronic back pain from herniated disc and history of varicose vein patient did have a L4-L5 microdiscectomy completed on 03/15/2022, subsequen tly have a problem with the drainage from the surgical site he did have a debridement 2 culture done on 03/31/2022 positive for Enterobacter. On today's evaluation that is 04/10/2022, the patient denies having any fever or chills, patient is feeling better lower back pain is currently controlled no chest pain shortness of breath or cough and no diarrhea Objective - Vital Signs Vital signs: Vital Signs Temp 97.8 F 04/10/22 08:00 Pulse 98 04/10/22 08:00 Resp 18 04/10/22 08:00 BP 97/66 04/10/22 08:00 Pulse Ox 96 04/10/22 08:00 FiO2 Intake & Output 04/09/22 04/10/22 04/10/22 18:59 06:59 18:59 Intake Total 1700 1800 Balance 1700 1800 Weight 83.9 kg Intake: Intake, IV Titration 1700 1300 Amount Cefepime 2 gm In Sodium 100 100 Chloride 0.9% 100 ml @ 25 mls/hr IVPB Q8HR DONTE Rx# :[id number] Lactated Ringers 1,000 ml 1200 1200 @ 100 mls/hr IV .Q10H DONTE Rx#:[id number] Vancomycin 1,500 mg In 400 Sodium Chloride 0.9% 500 ml 500 ml @ 167 mls/hr IVPB Q12H DONTE Rx#: [id number] Oral 500 Other: Voiding Method Toilet # Voids 3 - Exam Review of the picture taken at the time of dressing changes tissue was lumbar surgical site incision is intact with multiple stitches no surrounding redness - Labs CBC & Chem 7: 04/10/22 05:30 04/10/22 05:30 Labs: Abnormal Lab Results - Last 24 Hours (Table) 04/09/22 04/09/22 04/10/22 Range/Units 11:45 11:45 05:30 RBC (4.10-5.20) X 10*6/uL Hgb (12.0-15.0) g/dL Hct (37.2-46.3) % MCV (80.0-97.0) fL MCHC (32.0-37.0) g/dL ESR 108 H (0-20) mm/hr Anion Gap 9.10 L (10.00-18.00) mmol/L BUN/Creatinine Ratio 21.11 H (12.00-20.00) Ratio Glucose 117 H (70-110) mg/dL Calcium 8.5 L (8.7-10.3) mg/dL C-Reactive Protein 3.3 H (<1.0) mg/dL 04/10/22 Range/Units 05:30 RBC 2.98 L (4.10-5.20) X 10*6/uL Hgb 9.3 L (12.0-15.0) g/dL Hct 29.3 L (37.2-46.3) % MCV 98.3 H (80.0-97.0) fL MCHC 31.7 L (32.0-37.0) g/dL ESR (0-20) mm/hr Anion Gap (10.00-18.00) mmol/L BUN/Creatinine Ratio (12.00-20.00) Ratio Glucose (70-110) mg/dL Calcium (8.7-10.3) mg/dL C-Reactive Protein (<1.0) mg/dL Microbiology - Last 24 Hours (Table) 04/08/22 14:40 Gram Stain - Preliminary Back Wound Culture - Preliminary Gram Neg Bacilli Assessment and Plan (1) Postoperative infection Current Visit: No Status: Acute Code(s): T81.40XA - INFECTION FOLLOWING A [place] OCEDURE, UNSPECIFIED, INIT SNOMED Code(s): 26677089 Plan: 1patient is a 51 year female with a chronic back pain in this patient who is status post L4-L5 microdiscectomy on 03/15/2022 with a postoperative course completed by drainage from her incision site patient did have a revision of her microdiscectomy on 03/31/2022 and she did have a deep cultures came back positive with Enterobacter. 2blood cultures has been repeated which are currently pending., Patient did have elevated inflammatory markers 3patient to continue with cefepime 2 g every 8 hours, she will need a PICC line for outpatient IV antibiotic therapy Time with Patient: Less than 30
[2022-04-10] MEDS ORDERED: VANCOMYCIN IV PER PHARMACY 1 EACH MISC MISCELLANE PRN (15:10)
[2022-04-10] MEDS ORDERED: VANCOMYCIN 1,500 MG in SODIUM CHLORIDE 0.9% 500 ML 500 ML IVPB SCH (15:30)
[2022-04-10] MEDS: SODIUM CHLORIDE 0.9% 1,000 ML IV SCH (15:31)
--- NOTE | 2022-04-10 15:44 | P.PN ---
Subjective Progress Note Date: 04/10/22 (delayed charting seen at 0920) Patient is a 51-year-old female with lumbar radiculopathy, varicose veins, and obesity resented to the ER with complaints of draining wound and headaches. Patient initially underwent surgery on 03/15/22 with an L4 5 microdiscectomy and had some postop drainage from her incision. Patient underwent L4 5 microdiscectomy revision on 216 and cultures were obtained which grew Enterobacter. She was taken back to the OR on 04/08 for I&D. Patient seen and examined at bedside with present. She is up and ambulating without difficulty. She states that the pain is better. She still did not have a bowel movement despite senna, tanika/docusate, lactulose and prune juice. Willing to try lactulose again. Has been passing Gas. Vital signs reviewed General: nontoxic, no distress, appears at stated age Cardiovascular: S1S2 reg, no murmur, positive posterior tibial pulse bilateral, Lungs: CTA bilateral, no rhonchi, no rales , no accessory muscle use Abdominal: soft, nontender to palpation, no guarding, no appreciable organomegaly Ext: no gross muscle atrophy, no edema, no contractures Neuro: CN II-XI grossly intact, no focal neuro deficits Psych: Alert, oriented, appropriate affect Assessment: Low back pain with incisional drainage-status post IND 05/06. Recent culture from 03/31 with Enterobacter. Constipation Anemia, mild, anticipated outcome of procedure Obesity with BMI 30.8 Data Review: Laboratory analysis from today reviewed. blood cell count 6.44, hemoglobin 9.3, ESR 108, BUN 12, creatinine 0.6 -Wound culture with gram negative. Plan: -Infectious disease note reviewed: Continue cefepime 2 mg IV every 8 hours. She will need a PICC line placed for outpatient IV antibiotics. -Patient continues to require IV Dilaudid for adequate pain control (she has required 7 mg on 04/09/22.). -Orthopedic surgery recommendations reviewed. Encourage movement, continue with Flexeril, Victor, and gabapentin. - DVT prophylaxis per orthopedic surgery. Home with HH in 24-48 hours - Start Lovenox. - will need to repeat CBC in a.m. monitoring of active infection and anemia to ensure stability. Thank you for allowing us to participate in the care of this pleasant patient. Do not hesitate to contact us with questions. Someone can be reached from the [facility] hospitalist group all hours of the day at [phone] or via perfect serve. Objective - Vital Signs Vital signs: Vital Signs Temp 98.0 F 04/10/22 12:49 Pulse 97 04/10/22 12:49 Resp 16 04/10/22 12:49 BP 127/85 04/10/22 12:49 Pulse Ox 97 04/10/22 12:49 FiO2 Intake & Output 04/09/22 04/10/22 04/10/22 18:59 06:59 18:59 Intake Total 1700 1800 Balance 1700 1800 Weight 83.9 kg Intake: Intake, IV Titration 1700 1300 Amount Cefepime 2 gm In Sodium 100 100 Chloride 0.9% 100 ml @ 25 mls/hr IVPB Q8HR [facility] Rx# :[id number] Lactated Ringers 1,000 ml 1200 1200 @ 100 mls/hr IV .Q10H DONTE Rx#:[id number] Vancomycin 1,500 mg In 400 Sodium Chloride 0.9% 500 ml 500 ml @ 167 mls/hr IVPB Q12H [facility] Rx#: [id number] Oral 500 Other: Voiding Method Toilet # Voids 3 - Labs CBC & Chem 7: 04/10/22 05:30 04/10/22 05:30 Labs: Abnormal Lab Results - Last 24 Hours (Table) 04/09/22 04/10/22 04/10/22 Range/Units 11:45 05:30 05:30 RBC 2.98 L (4.10-5.20) X 10*6/uL Hgb 9.3 L (12.0-15.0) g/dL Hct 29.3 L (37.2-46.3) % MCV 98.3 H (80.0-97.0) fL MCHC 31.7 L (32.0-37.0) g/dL ESR 108 H (0-20) mm/hr Anion Gap 9.10 L (10.00-18.00) mmol/L BUN/Creatinine Ratio 21.11 H (12.00-20.00) Ratio Glucose 117 H (70-110) mg/dL Calcium 8.5 L (8.7-10.3) mg/dL Microbiology - Last 24 Hours (Table) 04/09/22 11:45 Blood Culture - Preliminary Blood No Growth after 24 hours 04/08/22 14:40 Gram Stain - Preliminary Back Wound Culture - Preliminary Gram Neg Bacilli
[2022-04-11] MEDS: HYDROmorphone 1 MG/ML 1 ML SYRINGE IVP PRN ×3 (02:36→22:17)
[2022-04-11] MEDS: ACETAMINOPHEN TAB 325 MG TAB PO SCH ×4 (05:09→23:20)
[2022-04-11] MEDS: HYDROcodone/APAP 10-325MG 1 EACH TAB PO PRN ×3 (05:24→18:19)
[2022-04-11] MEDS: LACTATED RINGERS 1,000 ML IV SCH ×2 (05:24→19:42)
[2022-04-11 06:04] LABS: HCT 29.4 % (34.0-46.0); HGB 10.2 gm/dL (11.4-16.0); MCH 32.4 pg (25.0-35.0); MCHC 34.6 g/dL (31.0-37.0); MCV 93.7 fL (80.0-100.0); Mean Platelet Volume 7.4; Platelet Count 257 k/uL (150-450); RBC 3.13 m/uL (3.80-5.40); RDW 12.6 % (11.5-15.5); WBC 5.5 k/uL (3.8-10.6)
[2022-04-11 06:22] LABS: African American GFR (CKD) >90 (>60 ml/min/1.73 sqM); Non-African American GFR(CKD) >90 (>60 ml/min/1.73 sqM)
--- NOTE | 2022-04-11 07:29 | P.PN ---
Subjective Progress Note Date: 04/11/22 Principal diagnosis: Incisional wound drainage Patient seen and examined this morning. Patient sitting up at bedside, tolerating activity well. Surgical dressing is clean dry and intact. Incision is well approximated with sutures. No drainage or shadowing noted. Patient taylor s express irritation from Ioban dressing, Benadryl cream has been ordered. Dr. Fagan recommends continuing IV antibiotic treatment at discharge. PICC line order has been placed. Patient reports slight discomfort in low back with activity, but is managed on current medication regimen. Patient reports that she has been ambulatory and hallway and within room without difficulty. Patient has been afebrile, denies nausea/vomiting, or chest pain. Objective - Vital Signs Vital signs: Vital Signs Temp 98.6 F 04/11/22 02:24 Pulse 103 H 04/11/22 02:24 Resp 16 04/11/22 02:24 BP 103/71 04/11/22 02:24 Pulse Ox 94 L 04/11/22 02:24 FiO2 Intake & Output 04/10/22 04/11/22 04/11/22 18:59 06:59 18:59 Intake Total 1400 1900 Balance 1400 1900 Intake: Intake, IV Titration 1400 1300 Amount Cefepime 2 gm In Sodium 200 100 Chloride 0.9% 100 ml @ 25 mls/hr IVPB Q8HR [facility] Rx# :[id number] Lactated Ringers 1,000 ml 1200 1200 @ 100 mls/hr IV .Q10H [facility] Rx#:[id number] Oral 600 Other: Voiding Method Toilet # Voids 5 3 - Exam Patient is alert and oriented 3 appears well-nourished well-hydrated is in no acute distress. They do not appear septic. On exam the patient has no tenderness to palpation of her thoracic or lumbar spine. There is slight redness to her low back region due to skin irritation from previous Ioban dressing. Surgical incision is well approximated with sutures, dressing CDI. No drainage noted. Lower extremities with [5]/5 strength in all major muscle groups Upper extremities show [5]/5 strength in all major muscle groups. [2]/4DTR all UE and LE b/l Patient shows a negative Homans, Barahona's, negative Babinski's negative clonus bilaterally. negative straight leg raise bilaterally. No tensioning signs. Cranial nerves II through XII are grossly intact. There is FROM that is painless of the b/l UE and LE in all major joints [w/o pain]. They are intact to light touch sensation in L2 to S1 nerve distribution. Patient has palpable dorsalis pedis was posterior tibial pulses. Compartments are soft and compressible. - Labs CBC & Chem 7: 04/11/22 05:31 04/11/22 05:31 Labs: Abnormal Lab Results - Last 24 Hours (Table) 04/10/22 04/10/22 04/11/22 Range/Units 05:30 05:30 05:31 RBC 2.98 L 3.13 L (4.10-5.20) X 10*6/uL Hgb 9.3 L 10.2 L (12.0-15.0) g/dL Hct 29.3 L 29.4 L (37.2-46.3) % MCV 98.3 H (80.0-97.0) fL MCHC 31.7 L (32.0-37.0) g/dL Anion Gap 9.10 L (10.00-18.00) mmol/L BUN/Creatinine Ratio 21.11 H (12.00-20.00) Ratio Glucose 117 H (70-110) mg/dL Calcium 8.5 L (8.7-10.3) mg/dL Microbiology - Last 24 Hours (Table) 04/08/22 14:40 Anaerobic Culture - Preliminary Back 04/08/22 14:40 Gram Stain - Final Back Wound Culture - Final Enterobacter cloacae 04/09/22 11:45 Blood Culture - Preliminary Blood No Growth after 24 hours Assessment and Plan Assessment: s/p Lumbar irrigation and debridement Plan: Plan: -Appreciate food consultant and team management. -Awaiting PICC line placement -Activity: Patient may continue to increase her activity, with ambulation and sitting up in chair with all meals. -Pain control: Adequate at this time -Meds: reviewed -GI ppx: senna, Miralax -DVT PPX: Heparin -Hygiene: Maintain dressing clean and dry. Meticulous cleaning after BMs away from the incision site -Encourage IS 10x/hr -Dispo: Discharge home with homecare later today vs tomorrow. *I reviewed and discussed this case with my attending Dr. Myers, whom has reviewed this chart and films and is in agreement with assessment and plan of care as outlined above. I have personally seen and examined the patient, performed the documentation and the assessment and plan as written. Number of minutes spent on the visit: 20m.
[2022-04-11] MEDS: CEFEPIME 2 GM in SODIUM CHLORIDE 0.9% 100 ML IVPB SCH ×2 (08:18→15:34)
[2022-04-11] MEDS: SENNOSIDES 8.6 MG TAB PO SCH (08:19)
[2022-04-11] MEDS: GABAPENTIN 300 MG CAP PO SCH ×3 (08:19→21:11)
[2022-04-11] MEDS: CYCLOBENZAPRINE 10 MG TAB PO SCH ×3 (08:19→21:11)
[2022-04-11] MEDS: ENOXAPARIN 40 MG/0.4 ML SYRINGE SQ SCH (08:19)
[2022-04-11] MEDS: diphenhydrAMINE 2% CREAM 28.4 GM TUBE TOPICAL SCH ×2 (08:56→21:11)
[2022-04-11] MEDS ORDERED: LIDOCAINE 1% INJ 10MG/ML (5 ML VIAL-PF) SQ ONE (09:43)
--- NOTE | 2022-04-11 10:03 | IR ---
PICC LINE PLACEMENT: HISTORY: Infection requiring long-term antibiotic therapy PROCEDURE: Ultrasound and fluoroscopic guidance of PICC line placement. COMPLICATIONS: None ANESTHESIA: 1. 1% Lidocaine locally. FINDINGS/TECHNIQUE: The procedure was explained to the patient. The risks, complications, benefits and alternatives were discussed and any questions were answered. Informed consent was obtained. The patient was placed supine on the fluoroscopic table and prepped and draped in the usual sterile fash ion. Utilizing a 21 gauge needle and sonographic and fluoroscopic guidance, access in the left basi lic vein was achieved and there is placement of a 0.018 guidewire. The vein is patent. A 4-F sheath was placed over the guidewire. The guidewire and dilator were removed and a 4-F. PICC line was plac ed through the sheath with the tip at the level of the SVC. The sheath was removed, the catheter was flushed and sutured into position. The patient was stable throughout the procedure and remained sta ble upon discharge from the Department of Radiology. The vein puncture was patent under ultrasound. A loera scale image was obtained to document patency of the vein punctured. All elements of the maximal barrier technique were utilized. FLUOROSCOPY TIME: 0.3 minutes and one image submitted IMPRESSION: Successful PICC line placement under ultrasound and fluoroscopic guidance.
--- NOTE | 2022-04-11 12:34 | P.PN ---
Subjective Progress Note Date: 04/11/22 Principal diagnosis: Lumbar surgical site infection Patient is a 51-year-old female with a past medical history significant for chronic back pain from herniated disc and history of varicose vein patient did have a L4-L5 microdiscectomy completed on 03/15/2022, subsequen tly have a problem with the drainage from the surgical site he did have a debridement 2 culture done on 03/31/2022 positive for Enterobacter. On today's evaluation that is 04/11/2022, the patient continues to be afebrile, patient is feeling better , the patient denies having any chest pain shortness of breath or cough no nausea no vomiting no abdominal pain lower back pain has improved Objective - Vital Signs Vital signs: Vital Signs Temp 98.3 F 04/11/22 07:07 Pulse 107 H 04/11/22 07:07 Resp 16 04/11/22 07:07 BP 112/79 04/11/22 07:07 Pulse Ox 94 L 04/11/22 07:07 FiO2 Intake & Output 04/10/22 04/11/22 04/11/22 18:59 06:59 18:59 Intake Total 1400 1900 Balance 1400 1900 Intake: Intake, IV Titration 1400 1300 Amount Cefepime 2 gm In Sodium 200 100 Chloride 0.9% 100 ml @ 25 mls/hr IVPB Q8HR [facility] Rx# :[id number] Lactated Ringers 1,000 ml 1200 1200 @ 100 mls/hr IV .Q10H [facility] Rx#:[id number] Oral 600 Other: Voiding Method Toilet # Voids 5 3 - Labs CBC & Chem 7: 04/11/22 05:31 04/11/22 05:31 Labs: Abnormal Lab Results - Last 24 Hours (Table) 04/11/22 Range/Units 05:31 RBC 3.13 L (3.80-5.40) m/uL Hgb 10.2 L (11.4-16.0) gm/dL Hct 29.4 L (34.0-46.0) % Microbiology - Last 24 Hours (Table) 04/08/22 14:40 Anaerobic Culture - Preliminary Back 04/08/22 14:40 Gram Stain - Final Back Wound Culture - Final Enterobacter cloacae 04/09/22 11:45 Blood Culture - Preliminary Blood No Growth after 24 hours Assessment and Plan (1) Postoperative infection Current Visit: No Status: Acute Code(s): T81.40XA - INFECTION FOLLOWING A PROCEDURE, UNSPECIFIED, INIT SNOMED Code(s): 92442579 Plan: 1patient is a 51 year female with a chronic back pain in this patient who is status post L4-L5 microdiscectomy on 03/15/2022 with a postoperative course completed by drainage from her incision site patient did have a revision of her microdiscectomy on 03/31/2022 and she did have a deep cultures came back positive with Enterobacter. 2blood cultures has been repeated which are negative so far., Patient did have elevated inflammatory markers, with a sed rate of 108 CRP of 3.3 3patient to continue with cefepime 2 g every 8 hours, patient did get a PICC line plan is to continue with the cefepime 4-6 weeks depending On clinical response with weekly monitoring of her sed rate and CRP this was discussed with the patient Time with Patient: Less than 30
--- NOTE | 2022-04-11 14:17 | P.PN ---
Subjective Progress Note Date: 04/11/22 (delayed charting seen at 1110) Patient is a 51-year-old female with lumbar radiculopathy, varicose veins, and obesity resented to the ER with complaints of draining wound and headaches. Patient initially underwent surgery on 03/15/22 with an L4 5 microdiscectomy and had some postop drainage from her incision. Patient underwent L4 5 microdiscectomy revision on 216 and cultures were obtained which grew Enterobacter. She was taken back to the OR on 04/08 for I&D. Patient seen and examined at bedside with present. Doing well, still no BM, no abdominal pain. No chest pain. Back pain is better/ Vital signs reviewed General: nontoxic, no distress, appears at stated age Cardiovascular: S1S2 reg, no murmur, positive posterior tibial pulse bilateral, Lungs: CTA bilateral, no rhonchi, no rales , no accessory muscle use Abdominal: soft, nontender to palpation, no guarding, no appreciable organomegaly Ext: no gross muscle atrophy, no edema, no contractures Neuro: CN II-XI grossly intact, no focal neuro deficits Psych: Alert, oriented, appropriate affect Assessment: Low back pain with incisional drainage-status post IND 05/06. Recent culture from 03/31 with Enterobacter. Constipation Anemia, mild, anticipated outcome of procedure Obesity with BMI 30.8 Data Review: Laboratory analysis from today reviewed. blood cell count 5.5, hemoglobin 10.2, creatinine 0.8 -Wound culture with Enterobacter Colacae Plan: - case discussed with infectious disease PICC line with cefepime at home for 4-6 weeks pending course. Will need follow-up in office. -Patient continues to require IV Dilaudid for adequate pain control (she has required 5 mg on 04/10/22.). -Orthopedic surgery recommendations reviewed. Encourage movement, continue with Flexeril, [place], and gabapentin. - DVT prophylaxis per orthopedic surgery. - Ortho note reviewed Home with HH in 24-48 hours pending abx approval. - medically optimized for discharge at the discretion of orthospine once abx approved. Patient is not on any maitnece medication to address on med rec. - Lactulose 20 mg PO BID prn constipation. Continue Senna. Thank you for allowing us to participate in the care of this pleasant patient. Do not hesitate to contact us with questions. Someone can be reached from the [facility] hospitalist group all hours of the day at [phone] or via perfect serve. Objective - Vital Signs Vital signs: Vital Signs Temp 98.4 F 04/11/22 11:32 Pulse 105 H 04/11/22 11:32 Resp 18 04/11/22 11:32 BP 125/84 04/11/22 11:32 Pulse Ox 97 04/11/22 11:32 FiO2 Intake & Output 04/10/22 04/11/22 04/11/22 18:59 06:59 18:59 Intake Total 1400 1900 Balance 1400 1900 Intake: Intake, IV Titration 1400 1300 Amount Cefepime 2 gm In Sodium 200 100 Chloride 0.9% 100 ml @ 25 mls/hr IVPB Q8HR [facility] Rx# :[id number] Lactated Ringers 1,000 ml 1200 1200 @ 100 mls/hr IV .Q10H [facility] Rx#:[id number] Oral 600 Other: Voiding Method Toilet Toilet # Voids 5 3 2 # Bowel Movements 1 - Labs CBC & Chem 7: 04/11/22 05:31 04/11/22 05:31 Labs: Abnormal Lab Results - Last 24 Hours (Table) 04/11/22 Range/Units 05:31 RBC 3.13 L (3.80-5.40) m/uL Hgb 10.2 L (11.4-16.0) gm/dL Hct 29.4 L (34.0-46.0) % Microbiology - Last 24 Hours (Table) 04/09/22 11:45 Blood Culture - Preliminary Blood No Growth after 48 hours 04/08/22 14:40 Anaerobic Culture - Preliminary Back 04/08/22 14:40 Gram Stain - Final Back Wound Culture - Final Enterobacter cloacae
[2022-04-11] MEDS: SODIUM CHLORIDE 0.9% 1,000 ML IV SCH (17:53)
[2022-04-12] MEDS: HYDROcodone/APAP 10-325MG 1 EACH TAB PO PRN ×2 (00:33→06:30)
[2022-04-12] MEDS: CEFEPIME 2 GM in SODIUM CHLORIDE 0.9% 100 ML IVPB SCH ×2 (00:34→11:09)
[2022-04-12] MEDS: LACTATED RINGERS 1,000 ML IV SCH ×2 (00:35→14:04)
[2022-04-12] MEDS: ACETAMINOPHEN TAB 325 MG TAB PO SCH ×2 (05:31→14:04)
--- NOTE | 2022-04-12 07:46 | P.PN ---
Subjective Progress Note Date: 04/12/22 Principal diagnosis: Incisional wound drainage Patient seen and examined this morning. Patient resting in bed. Surgical dressi ng is clean dry and intact. No drainage or shadowing noted. Patient does express that she would like to shower today before leaving. New dressing will be ordered. PICC line has been placed. Awaitng prescription and follow up details from Dr. Fagan. Patient reports slight discomfort in low back with activity, but is managed on current medication regimen. Patient reports that she has been ambulatory and hallway and within room without difficulty. Patient has been afebrile, denies nausea/vomiting, or chest pain. Objective - Vital Signs Vital signs: Vital Signs Temp 98.5 F 04/12/22 01:53 Pulse 107 H 04/12/22 02:59 Resp 16 04/12/22 01:53 BP 113/64 04/12/22 01:53 Pulse Ox 94 L 04/12/22 01:53 FiO2 Intake & Output 04/11/22 04/12/22 04/12/22 18:59 06:59 18:59 Intake Total 1900 Balance 1900 Intake: Intake, IV Titration 1300 Amount Cefepime 2 gm In Sodium 100 Chloride 0.9% 100 ml @ 25 mls/hr IVPB Q8HR [facility] Rx# :[id number] Lactated Ringers 1,000 ml 1200 @ 100 mls/hr IV .Q10H [facility] Rx#:[id number] Oral 600 Other: Voiding Method Toilet Toilet # Voids 1 3 # Bowel Movements 1 - Exam Patient is alert and oriented 3 appears well-nourished well-hydrated is in no acute distress. They do not appear septic. On exam the patient has no tenderness to palpation of her thoracic or lumbar spine. Surgical incision is well approximated with sutures, dressing CDI. No drainage noted. Lower extremities with [5]/5 strength in all major muscle groups Upper extremities show [5]/5 strength in all major muscle groups. [2]/4DTR all UE and LE b/l Patient shows a negative Homans, Barahona's, negative Babinski's negative clonus bilaterally. negative straight leg raise bilaterally. No tensioning signs. Cranial nerves II through XII are grossly intact. There is FROM that is painless of the b/l UE and LE in all major joints [w/o pain]. They are intact to light touch sensation in L2 to S1 nerve distribution. Patient has palpable dorsalis pedis was posterior tibial pulses. Compartments are soft and compressible. - Labs CBC & Chem 7: 04/11/22 05:31 04/11/22 05:31 Labs: Microbiology - Last 24 Hours (Table) 04/09/22 11:45 Blood Culture - Preliminary Blood No Growth after 48 hours Assessment and Plan Assessment: s/p Lumbar irrigation and debridement Plan: Plan: -Appreciate excellence consultant and team management. -Awaiting Prescription and follow up details from Dr. Fagan -Activity: Patient may continue to increase her activity, with ambulation and sitting up in chair with all meals. -Pain control: Adequate at this time -Meds: reviewed -GI ppx: senna, Miralax -DVT PPX: Heparin -Hygiene: Patient may shower. Maintain dressing clean and dry. Meticulous cleaning after BMs away from the incision site -Encourage IS 10x/hr -Dispo: Discharge home with homecare today *I reviewed and discussed this case with my attending Dr. Myers, whom has reviewed this chart and films and is in agreement with assessment and plan of care as outlined above. I have personally seen and examined the patient, performed the documentation and the assessment and plan as written. Number of minutes spent on the visit: 10m.
[2022-04-12] MEDS: HYDROmorphone 1 MG/ML 1 ML SYRINGE IVP PRN (10:13)
[2022-04-12] MEDS: CYCLOBENZAPRINE 10 MG TAB PO SCH (11:08)
[2022-04-12] MEDS: GABAPENTIN 300 MG CAP PO SCH (11:09)
[2022-04-12] MEDS: ENOXAPARIN 40 MG/0.4 ML SYRINGE SQ SCH (11:09)
[2022-04-12] MEDS: SENNOSIDES 8.6 MG TAB PO SCH (11:09)
--- NOTE | 2022-04-12 12:08 | P.PN ---
Subjective Progress Note Date: 04/12/22 Principal diagnosis: Lumbar surgical site infection Patient is a 51-year-old female with a past medical history significant for chronic back pain from herniated disc and history of varicose vein patient did have a L4-L5 microdiscectomy completed on 03/15/2022, subsequen tly have a problem with the drainage from the surgical site he did have a debridement 2 culture done on 03/31/2022 positive for Enterobacter. On today's evaluation that is 04/12/2022, the patient remains to be afebrile, patient denies having any chest pain shortness of breath or cough no nausea no vomiting no abdominal pain lower back pain has improved, patient did get a PICC line currently waiting for outpatient IV antibiotic arrangement Objective - Vital Signs Vital signs: Vital Signs Temp 97.8 F 04/12/22 08:00 Pulse 91 04/12/22 08:00 Resp 17 04/12/22 08:00 BP 121/75 04/12/22 08:00 Pulse Ox 96 04/12/22 08:00 FiO2 Intake & Output 04/11/22 04/12/22 04/12/22 18:59 06:59 18:59 Intake Total 1900 Balance 1900 Intake: Intake, IV Titration 1300 Amount Cefepime 2 gm In Sodium 100 Chloride 0.9% 100 ml @ 25 mls/hr IVPB Q8HR [facility] Rx# :[id number] Lactated Ringers 1,000 ml 1200 @ 100 mls/hr IV .Q10H [facility] Rx#:[id number] Oral 600 Other: Voiding Method Toilet Toilet Toilet # Voids 1 3 # Bowel Movements 1 - Exam GENERAL DESCRIPTION: A middle-aged female lying in bed in no distress RESPIRATORY SYSTEM: Unlabored breathing , decreased breath sounds at bases HEART: S1 S2 regular rate and rhythm , ABDOMEN: Soft , no tenderness EXTREMITIES: No edema feet - Labs CBC & Chem 7: 04/11/22 05:31 04/11/22 05:31 Labs: Microbiology - Last 24 Hours (Table) 04/09/22 11:45 Blood Culture - Preliminary Blood No Growth after 48 hours Assessment and Plan (1) Postoperative infection Current Visit: No Status: Acute Code(s): T81.40XA - INFECTION FOLLOWING A PROCEDURE, UNSPECIFIED, INIT SNOMED Code(s): 59030836 Plan: 1patient is a 51 year female with a chronic back pain in this patient who is status post L4-L5 microdiscectomy on 03/15/2022 with a postoperative course completed by drainage from her incision site patient did have a revision of her microdiscectomy on 03/31/2022 and she did have a deep cultures came back positive with Enterobacter. 2blood cultures has been repeated which are negative so far., Patient did have elevated inflammatory markers, with a sed rate of 108 CRP of 3.3 3patient seemed to have shown clinical improvement, patient did get a PICC line, plan is to continue with the cefepime 4-6 weeks depending On clinical response with weekly monitoring of her sed rate and CRP and a close outpatient follow-up Prescriptions were provided to the case monitor Time with Patient: Less than 30
[2022-04-12] MEDS: diphenhydrAMINE 2% CREAM 28.4 GM TUBE TOPICAL SCH (14:56)
[2022-04-12 15:20] VITALS: BP 128/75; PULSE 110; RESP 18; TEMP 98.4
--- NOTE | 2022-04-12 16:49 | P.PN ---
Subjective Progress Note Date: 04/12/22 (delayed charting seen at 0925) Patient is a 51-year-old female with lumbar radiculopathy, varicose veins, and obesity resented to the ER with complaints of draining wound and headaches. Patient initially underwent surgery on 03/15/22 with an L4 5 microdiscectomy and had some postop drainage from her incision. Patient underwent L4 5 microdiscectomy revision on 216 and cultures were obtained which grew Enterobacter. She was taken back to the OR on 04/08 for I&D. Patient seen and examined at bedside with present. Had a bowel movement yesterday. Feeling well. No complaints. Vital signs reviewed General: nontoxic, no distress, appears at stated age Cardiovascular: S1S2 reg, no murmur, positive posterior tibial pulse bilateral, Lungs: CTA bilateral, no rhonchi, no rales , no accessory muscle use Abdominal: soft, nontender to palpation, no guarding, no appreciable or ganomegaly Ext: no gross muscle atrophy, no edema, no contractures Neuro: CN II-XI grossly intact, no focal neuro deficits Psych: Alert, oriented, appropriate affect Assessment: Low back pain with incisional drainage-status post I and D 05/06. Recent culture from 03/31 with Enterobacter. Repeat culture with enterobacter. Constipation, resolved Anemia, mild, anticipated outcome of procedure Obesity with BMI 30.8 Data Review: -Wound culture with Enterobacter Colacae Plan: - ID Note reviewed- cefepime at home for 4-6 weeks pending course. Will need follow-up in office. - Patient continues to require IV Dilaudid for adequate pain control (she has required 3 mg on 04/11/22.). - Orthopedic surgery recommendations reviewed. Likely home today. - medically optimized for discharge at the discretion of orthospine once abx approved. Patient is not on any maintenance medications to address on med rec. - Anticipate home today. Thank you for allowing us to participate in the care of this pleasant patient. Do not hesitate to contact us with questions. Someone can be reached from the [facility] hospitalist group all hours of the day at [phone] or via perfect serve. Objective - Vital Signs Vital signs: Vital Signs Temp 98.4 F 04/12/22 14:00 Pulse 110 H 04/12/22 14:00 Resp 18 04/12/22 14:00 BP 128/75 04/12/22 14:00 Pulse Ox 96 04/12/22 08:00 FiO2 Intake & Output 04/11/22 04/12/22 04/12/22 18:59 06:59 18:59 Intake Total 1900 Balance 1900 Intake: Intake, IV Titration 1300 Amount Cefepime 2 gm In Sodium 100 Chloride 0.9% 100 ml @ 25 mls/hr IVPB Q8HR DONTE Rx# :[id number] Lactated Ringers 1,000 ml 1200 @ 100 mls/hr IV .Q10H DONTE Rx#:[id number] Oral 600 Other: Voiding Method Toilet Toilet Toilet # Voids 1 3 # Bowel Movements 1 - Labs CBC & Chem 7: 04/11/22 05:31 04/11/22 05:31 Labs: Microbiology - Last 24 Hours (Table) 04/09/22 11:45 Blood Culture - Preliminary Blood No Growth after 72 hours
--- NOTE | 2022-04-18 08:03 | P.OP ---
Date of Procedure: 04/08/22 Preoperative Diagnosis: 1. Draining lumbar wound 2. s/p L4-5 lami with revision and dural repair Postoperative Diagnosis: 1. Draining lumbar wound 2. s/p L4-5 lami with revision and dural repair Procedure(s) Performed: 1. Revision I&D with revision dural repair L4-5 with fat patch graft. ([id number]) Implants: Tisseal Duragen Anesthesia: GETA Surgeon: Mason Myers Cook Chef #1: Payam Brandon Estimated Blood Loss (ml): 15 IV fluids (ml): 250 Urine output (ml): 0 Pathology: other (x1 superficial back) Condition: stable Disposition: PACU Indications for Procedure: 51 yo female returned to ED due to continued draining of her wound despite recent I&D with dural repair due to bony protuberence. She continued to have drainage and so she was taken back to OR for washout and dural repair. The repiar was water right and robust and she did well after this. After surgery she had two days of no leakage from the wound but yesterday she had more serous leakage from the center of the wound. She remained asymptomatic from the stand point of no SCHWAB, no N, V, no blurred or double vision or any other issues but she is not healing her skin or the area well due to the continued drainage. We discussed at length that this could be due to infection, continued dural leak or just poor healing potential and they understood. Either way we decided to revise the washout and revisit the dural repair. They agreed and were willing to assume the risks of surgery which were outlined previously in risk reviews and discussions. Description of Procedure: The patient was seen and examined in the preoperative area. All preoperative protocols were followed. Informed consent was obtained risks and benefits of the procedure were discussed at length. Risks including bleeding infection damage to the surrounding tissue and risk of reoperation were discussed with the patient. Risk of anesthesia up to and including was a discussed with the patient. These are outlined in the risk review. They were willing to accept these risks and all of the risks of surgery. The patient was given a weight- based dose of antibiotics in the form of 2 g Ancef from the floor. The patient was seen and evaluated by the anesthesia team who deemed them fit for surgery. The site was marked, the patient was willing to proceed with the procedure. The patient was transferred to the operative suite by the Department of anesthesia. They were then drifted off to sleep by the department anesthesia and GETA was performed. The patient tolerated this well. [Lund catheter was placed by nursing staff, atraumatically]. Once confirmation of lines and ventilation the patient was transferred to a [prone Haseeb table very carefully]. All bony prominences including wrists, elbows, axilla, chest, hips, and thighs, and feet were padded very well. Special attention was paid to the genitalia and these were padded accordingly. SCDs were placed on bilateral lower extremities and were connected. Arms were well padded and placed [on arm boards up and out in the 90/90 position]. Once in position, again we confirmed good ventilation capabilities and that lines were running appropriately. The patient's lumbar spine was then exposed. 1010s were placed outlining the incision site. Standard alcohol was used to clean the incision site and allowed to dry. C-arm was used to biomark the patient and confirm level for incision which was marked with a skin marker. Operative briefing was performed with all teams and everyone in agreement to proceed. The patient was then prepped and draped in a normal sterile fashion. Timeout was then performed and all parties were in agreement with the procedure to be performed. Previous lumbar incision was incised midline and dissection taken down left unilateral to visualize this area. There is a fluid collection that was subcutaneous which was noted and cultured. The sutures were holding and there was no active drainage from the deep portion however there was evidence that there was seepage in this area and so the sutures were removed and this was dissected down. The previous patch of the dura seemed to be intact and there was no leaking on this area Valsalva maneuver showed no leaking however the patches dissected around and portions of it removed. Another patch and fat graft were selected. The wound was irrigated thoroughly with 3 L of Ancef irrigation 3 L of gentamicin irrigation and 3 L of normal sterile saline along with Betadine solution. There was debridement that was done of necrotic subc utaneous fat and tissue with curettes. We then replaced a new fat graft and patch graft over the dural area. Tisseel was then placed over this as well as Surgicel over by another Tisseel. A Valsalva maneuver to 40 revealed no continuous CSF leak. We then performed layered closure of the fascia first with #1 PDS. OPS was used in the deep subcu tissue 2-0 Vicryl used in the subcu tissue and 2-0 nylon used in the skin in an interrupted fashion. Wound edges approximated very well. The wound was then cleaned and dressed sterilely with an operative foam dressing. The patient was transferred back to their hospital bed atraumatically. . Patient was then awakened and extubated by the department of anesthesia having tolerated the procedure very well with no complications. They were transferred to the postoperative care unit in stable condition.
== END 2022-04-12 16:19 | disposition home health service (06) ==
LOC: OR 14:02 → INTOOBSV 16:15 → 5NMEDONC 16:15 → UNDODISIN 04-12 16:19
PROVIDERS: ADMIT Orthopaedic Surgery; ATTEND Orthopaedic Surgery
DX: T81.40XA Infection following a procedure, unspecified, initial encounter (principal); I83.90 Asymptomatic varicose veins of unspecified lower extremity; D64.9 Anemia, unspecified; E66.9 Obesity, unspecified; M54.16 Radiculopathy, lumbar region; B96.89 Other specified bacterial agents as the cause of diseases classified elsewhere; K59.00 Constipation, unspecified; Z79.899 Other long term (current) drug therapy; Z68.30 Body mass index [BMI] 30.0-30.9, adult; Z88.2 Allergy status to sulfonamides; Z80.49 Family history of malignant neoplasm of other genital organs; Y83.4 Other reconstructive surgery as the cause of abnormal reaction of the patient, or of later complication, without mention of misadventure at the time of the procedure
CPT/HCPCS: 11042; 63710; 96376 ×5; 96361 ×4; 96365 ×4; 96366 ×9; 96372; 96375; 96367 ×2; 99284; 93005; 97162; 36573; 83880; 80053; 80048 ×4; 85652; 82565; 85025 ×2; 85027 ×3; 85610; 85730; 86140; 81025; 87040; 80170; 87070; 87205; 87075; 87077; 87186; G0378 ×9; C1762 ×2; C1751; C1769; J2250; J3370 ×2; J0330; J1580; J1100; J2710; J0690 ×3; J2405; J2001 ×2; J0696; J1650; J0692 ×4; J3010; J1170 ×6; J2370; J2704; 96360

== ENCOUNTER → 2022-07-05 | Outpatient (CLI) | payer OTHER ==
[2022-07-05 15:07] LABS: Basophils # (A) 0.03 X 10*3/uL (0.00-0.10); Basophils % (A) 0.6 %; Eosinophils # (A) 0.15 X 10*3/uL (0.04-0.35); Eosinophils % (A) 3.2 %; HGB 13.1 g/dL (12.0-15.0); Immature Grans, Automated 0 %; Lymphocytes # (A) 0.86 X 10*3/uL (0.90-5.00); Lymphocytes % (A) 18.2 %; MCH 30.9 pg (27.0-32.0); MCHC 32.8 g/dL (32.0-37.0); MCV 94.3 fL (80.0-97.0); Mean Platelet Volume 11.4 fL (9.5-12.2); Monocytes # (A) 0.29 X 10*3/uL (0.20-1.00); Monocytes % (A) 6.1 %; NRBC Per 100 WBC 0 /100 WBCS (0.0-0.0); Neutrophils # (A) 3.39 X 10*3/uL (1.80-7.70); Neutrophils % (A) 71.9 %; Platelet Count 265 X 10*3/uL (140-440); RBC 4.24 X 10*6/uL (4.10-5.20); RDW 13.2 % (11.5-14.5); WBC 4.72 X 10*3/uL (4.50-10.00)
[2022-07-05 15:33] LABS: African American GFR (CKD) 116.5 (60.0-200.0); Albumin 4.6 g/dL (3.8-4.9); Albumin/Globulin Ratio 1.74 (1.60-3.17); Anion Gap 12.3 mmol/L (10.00-18.00); BUN/Creat Ratio 19.35 Ratio (12.00-20.00); Blood Urea Nitrogen 13.2 mg/dL (9.0-27.0); C Reactive Protein 1.2 mg/dL (0.00-0.80); Calcium 9.7 mg/dL (8.7-10.3); Carbon Dioxide 23.7 mmol/L (20.0-27.5); Globulin 2.7 g/dL (1.6-3.3); Non-African American GFR(CKD) 100.5 (60.0-200.0); Potassium 4.1 mmol/L (3.5-5.5); Total Bilirubin 0.3 mg/dL (0.30-1.20); Total Protein 7.3 g/dL (6.2-8.2)
[2022-07-05 15:55] LABS: Erythrocyte Sedimentation Rate 45 mm/Hr (0-30)
== END | disposition home or self-care (01) ==
LOC: LABWHC1 09:30
PROVIDERS: ATTEND Internal Medicine Infectious Disease
DX: T81.49XA Infection following a procedure, other surgical site, initial encounter (principal); Y82.9 Unspecified medical devices associated with adverse incidents
CPT/HCPCS: 36415; 80053; 85025; 85652; 86140

== ENCOUNTER → 2023-02-20 | Outpatient (CLI) | payer BC | END | disposition home or self-care (01) | LOC: LABWHC1 09:15 | PROVIDERS: ATTEND Emergency Medicine | DX: Z02.83 Encounter for blood-alcohol and blood-drug test (principal) | CPT/HCPCS: 36415 ==

== ENCOUNTER → 2024-07-26 | Outpatient (CLI) | payer BC ==
[2024-07-26 15:35] LABS: Progesterone 3.5 ng/mL
[2024-07-26 15:44] LABS: Estradiol <20.0 pg/mL
[2024-07-26 16:03] LABS: Follicle Stimulating Hormone 51.4 mIU/mL
[2024-07-29 16:36] LABS: Insulin-like GF3 Bind Prot 4.3 mg/L (3.4-6.9)
== END | disposition home or self-care (01) ==
LOC: LABWHC1 08:04
PROVIDERS: ATTEND Emergency Medicine
DX: Z51.81 Encounter for therapeutic drug level monitoring (principal); E34.9 Endocrine disorder, unspecified; E88.810 Metabolic syndrome; E61.9 Deficiency of nutrient element, unspecified; E56.9 Vitamin deficiency, unspecified; Z79.899 Other long term (current) drug therapy
CPT/HCPCS: 36415; 82306; 82397; 82627; 82670; 83001; 83735; 84140; 84144; 84270; 84305; 84402; 84403; 85652; 86141; 86337